=== PATIENT | female | born 1950 | race Caucasian/White ===

== ENCOUNTER → 2017-06-02 06:45 | Outpatient (REF) | payer MEDICARE, SELFPAY ==
[2017-06-02 08:55] LABS: Hematocrit 34.8 % (37-47); Hemoglobin 11.4 g/dl (12.0-15.0); Mean Corp Hgb Conc 32.8 g/gl (32-36); Mean Corpuscular Hgb 33.7 pg (27.0-32.0); Mean Platelet Vol. 9.5 fl (6.2-12.0); Platelet Count 228 K/mm3 (150-450); RBC Distribution Width CV 14.2 % (11.6-14.6); RBC Distribution Width SD 52.8 fl (35.1-43.9); Red Blood Count 3.38 M/mm3 (4.2-5.4); White Blood Count 5.4 K/mm3 (4.4-11.0)
[2017-06-02 08:56] LABS: Scan Indicated on CBC? Y/N NO
[2017-06-02 09:03] LABS: ALB/GLOB Ratio 0.8 RATIO (0.9-2.4); AST(SGOT) 19 U/L (15-37); Alanine Aminotransfer ALT/SGPT 24 U/L (13-56); Albumin, Serum 2.7 g/dL (3.2-5.0); Alkaline Phosphatase 76 U/L (45-117); Anion Gap 5 (5-15); BUN 16 mg/dL (7-18); BUN/Creat Ratio 35.9 RATIO (10-20); Calcium,Total 8.1 mg/dL (8.5-10.1); Chloride 103 mmol/L (98-107); Creatinine, Serum 0.45 mg/dL (0.55-1.02); EST Glomerular Filtration Rate 148 mL/min (>60); Est Glom Filt Rate - Afr Amer 180 mL/min (>60); Globulin 3.6 g/dL (2.2-4.2); Glucose 87 mg/dL (74-106); Magnesium 2.4 mg/dL (1.6-2.6); Potassium 4.2 mmol/L (3.5-5.1); Protein, Total 6.3 g/dL (6.4-8.2); Sodium Level 138 mmol/L (136-145)
[2017-06-04 09:57] LABS: Vitamin D,25 Hydroxy 29.9 ng/mL (29.95-100.01)
== END ==
LOC: OLS.ACW300 06:45
PROVIDERS: Visit Provider Family Medicine
DX: S82.201S Unspecified fracture of shaft of right tibia, sequela (principal); R29.6 Repeated falls; Z51.89 Encounter for other specified aftercare; M62.81 Muscle weakness (generalized); M15.0 Primary generalized (osteo)arthritis; F32.9 Major depressive disorder, single episode, unspecified
CPT/HCPCS: 36415; 80053; 82306; 83735; 84443; 85027

== ENCOUNTER → 2017-09-29 05:40 | Outpatient (REF) | payer MEDICARE, MEDICAID, SELFPAY ==
[2017-09-29 07:33] LABS: Hemoglobin 12.3 g/dl (12.0-15.0); Mean Corp Hgb Conc 32.4 g/gl (32-36); Mean Corpuscular Hgb 32.2 pg (27.0-32.0); Mean Corpuscular Volume 99.5 fL (81-99); Platelet Count 122 K/mm3 (150-450); RBC Distribution Width CV 14.6 % (11.6-14.6); RBC Distribution Width SD 52.7 fl (35.1-43.9); Red Blood Count 3.82 M/mm3 (4.2-5.4)
[2017-09-29 07:53] LABS: Scan Indicated on CBC? Y/N NO
[2017-09-29 07:55] LABS: Chloride 103 mmol/L (98-107); Creatinine, Serum 0.52 mg/dL (0.55-1.02); EST Glomerular Filtration Rate 125 mL/min (>60); Est Glom Filt Rate - Afr Amer 152 mL/min (>60); Potassium 4.2 mmol/L (3.5-5.1); Sodium Level 142 mmol/L (136-145)
[2017-09-29 07:56] LABS: BUN 10 mg/dL (7-18); BUN/Creat Ratio 19.2 RATIO (10-20); Glucose 110 mg/dL (74-106)
[2017-09-29 07:57] LABS: Anion Gap 8 (5-15); Calcium,Total 8.3 mg/dL (8.5-10.1)
== END ==
LOC: OLS.ACW300 05:40
PROVIDERS: Visit Provider Family Medicine
DX: S83.20 Tear of unspecified meniscus, current injury (principal); R29.6 Repeated falls; M62.81 Muscle weakness (generalized); M15.0 Primary generalized (osteo)arthritis; Z47.89 Encounter for other orthopedic aftercare
CPT/HCPCS: 36415; 80048; 85027

== ENCOUNTER → 2018-03-06 05:00 | Outpatient (REF) | payer MEDICARE, SELFPAY ==
[2018-03-06 09:15] LABS: Absolute Lymphocyte Count 1.21 X10^3/ul (0.83-4.51); Absolute Neutrophil Count 2.5 X10^3/uL (2.0-7.7); Basophil# 0.01 X10^3/uL; Basophil% 0.2 % (0-1); Eosinophil# 0.13 X10^3/uL; Eosinophils% 3.1 % (0-5); Hemoglobin 12.3 g/dl (12.0-15.0); Lymphocyte # 1.21 X10^3/ul (4.0); Lymphocyte % 28.9 % (19-41); Mean Corp Hgb Conc 31.5 g/gl (32-36); Mean Corpuscular Hgb 32.9 pg (27.0-32.0); Mean Corpuscular Volume 104.3 fL (81-99); Mean Platelet Vol. 10.5 fl (6.2-12.0); Monocyte# 0.31 X10^3/uL; Monocyte% 7.4 % (0-10); Neutrophil % 59.9 % (47-70); Platelet Count 146 K/mm3 (150-450); RBC Distribution Width CV 14.7 % (11.6-14.6); RBC Distribution Width SD 55.5 fl (35.1-43.9); Red Blood Count 3.74 M/mm3 (4.2-5.4); White Blood Count 4.2 K/mm3 (4.4-11.0)
[2018-03-06 09:29] LABS: POSITIVE COUNT NO; POSITIVE DIFFERENTIAL NO; POSITIVE MORPHOLOGY NO
[2018-03-06 09:30] LABS: ALB/GLOB Ratio 0.9 RATIO (0.9-2.4); AST(SGOT) 12 U/L (15-37); Alanine Aminotransfer ALT/SGPT 16 U/L (13-56); Alkaline Phosphatase 62 U/L (45-117); Amylase 49 U/L (25-115); Anion Gap 5 (5-15); BUN 18 mg/dL (7-18); BUN/Creat Ratio 35.2 RATIO (10-20); Chloride 104 mmol/L (98-107); Creatinine, Serum 0.51 mg/dL (0.55-1.02); EST Glomerular Filtration Rate 126 mL/min (>60); Est Glom Filt Rate - Afr Amer 153 mL/min (>60); Globulin 3.5 g/dL (2.2-4.2); Glucose 91 mg/dL (74-106); Potassium 4.6 mmol/L (3.5-5.1); Protein, Total 6.5 g/dL (6.4-8.2); Sodium Level 140 mmol/L (136-145)
--- OUTSIDE RECORDS SUMMARY | 2018-06-07 07:18 | XMS RPT_ITS ---
:1950 Author Organization [employer] Address [address] [place] [address] Phone Care Team Providers Name Role Phone Todd VALLADARES, Sam Varela Reason for Visit Reason For Visit Description Start Date Postop - 1st visit Preliminary reason for visit data, not yet signed by the author as of right leg post Open Reduction Internal Fixation Right Tib-fib on 05/21/2017 Preliminary reason for visit data, not yet signed by the author as of Chief Complaint Chief Complaint Description Start Date right leg post Open Reduction Internal Fixation Right Tib-fib on 05/21/2017 Preliminary chief complaint data, not yet signed by the author as of Instructions Instruction Description Start Date Patient advised to follow-up with Primary Care Physician for BMI management. Plan of Care Type Date Detail Appointment 01:15 PM Sam Brooks MD, [address] [facility] [place], [place], [address], Pending order XR TIBIA/FIBULA 2 VWS-RT Patient education \cps-sql1\CPS_PtEducation\CD C_[email or web address].pdf Medications Medication Instructions Start Stop Generic Name NDC Provider Date Date KETOCONAZOLE 2 % apply to / KETOCONAZOLE [id number] Mabel Randee CREA affected areas 22 INDUSTRIAL TRAINING SPECIALIST twice daily AMMONIUM LACTATE apply topically / AMMONIUM LACTATE [id number] Mabel Randee 12 % CREA to affected 22 INDUSTRIAL TRAINING SPECIALIST area every shift LEVOTHYROXINE 1 tablet daily / LEVOTHYROXINE 44332907947 Mabel Randee SODIUM 25 MCG 22 SODIUM INDUSTRIAL TRAINING SPECIALIST TABS OXYCODONE-ACETAM 1 tablet every / OXYCODONE-ACETAMI 46229079431 Mabel Jeff INOPHEN 5-325 MG 4 hours as 22 NOPHEN INDUSTRIAL TRAINING SPECIALIST TABS needed GUAIFENESIN-CODE 30 cc daily as / GUAIFENESIN-CODEI [id number] Mabel Randee INE 100-10 needed 22 NE INDUSTRIAL TRAINING SPECIALIST MG/5ML SYRP ACETAMINOPHEN 2 tablets three / ACETAMINOPHEN 84450365964 Mabel Randee 325 MG TABS times daily as 22 INDUSTRIAL TRAINING SPECIALIST needed MIRALAX POWD 17 gm daily / POLYETHYLENE 33130067995 Mabel Randee 22 GLYCOL 3350 INDUSTRIAL TRAINING SPECIALIST RANITIDINE HCL 1 tablet daily / RANITIDINE HCL 57936963252 Mabel Randee 150 MG TABS 22 INDUSTRIAL TRAINING SPECIALIST DILANTIN 100 MG 1 capsule twice / PHENYTOIN SODIUM 99853527124 Mabel Randee CAPS daily 22 EXTENDED INDUSTRIAL TRAINING SPECIALIST METOPROLOL 1 tablet daily / METOPROLOL 36369805376 Mabel Randee SUCCINATE ER 25 22 SUCCINATE INDUSTRIAL TRAINING SPECIALIST MG [id number] LOSARTAN 1 tablet daily / LOSARTAN 35156423655 Mabel Randee POTASSIUM 50 MG 22 POTASSIUM INDUSTRIAL TRAINING SPECIALIST TABS VITAMIN D3 1000 2 tablets daily / CHOLECALCIFEROL 52337206476 Mabel Randee UNIT TABS 22 INDUSTRIAL TRAINING SPECIALIST Conditions or Problems Problem Name Problem Onset Status Entry Provider Comment Standard Annotate Code Date Date Description Unspecified [id number] Active Sam Paige Closed SP IMN at fracture of (SNOMED CT) / Todd VALLADARES fracture of OSH shaft of tibia and right fibula, fibula, initial shaft encounter for closed fracture Unspecified [id number] Active Sam Paige Closed SP IMN at fracture of (SNOMED CT) / Todd VALLADARES fracture of OSH shaft of tibia and right tibia, fibula, initial shaft encounter for closed fracture Allergies, Adverse Reactions, Alerts Allergy Name Reaction Start Date Severity Status Provider Description TRAMADOL HCL Critical Active Mabel Randee INDUSTRIAL TRAINING SPECIALIST TETRACYCLINE Critical Active Mabel Randee INDUSTRIAL TRAINING SPECIALIST PENICILLIN Critical Active Mabel Randee INDUSTRIAL TRAINING SPECIALIST OXYBUTYNIN Critical Active Mabel Randee INDUSTRIAL TRAINING SPECIALIST NAPROSYN Critical Active Mabel Randee INDUSTRIAL TRAINING SPECIALIST MEPERIDINE HCL Critical Active Mabel Randee INDUSTRIAL TRAINING SPECIALIST FENTANYL (FENTANYL) Critical Active Mabel Randee INDUSTRIAL TRAINING SPECIALIST CODEINE PHOSPHATE Critical Active Mabel Randee INDUSTRIAL TRAINING SPECIALIST ASPIRIN Critical Active Mabel Randee INDUSTRIAL TRAINING SPECIALIST ACETAZOLAMIDE Critical Active Mabel Randee INDUSTRIAL TRAINING SPECIALIST SULFANLIAMIDE Critical Active Mabel Randee INDUSTRIAL TRAINING SPECIALIST NSAIDS Critical Active Mabel Randee INDUSTRIAL TRAINING SPECIALIST MACRODENTIN Critical Active Mabel Randee INDUSTRIAL TRAINING SPECIALIST MACROBID Critical Active Mabel Randee INDUSTRIAL TRAINING SPECIALIST HYDROCODONE-ACETAMI Critical Active Mabel Randee NOPHEN INDUSTRIAL TRAINING SPECIALIST DEMEROL Critical Active Mabel Randee INDUSTRIAL TRAINING SPECIALIST CIPRO Critical Active Mabel Randee (CIPROFLOXACIN HCL) INDUSTRIAL TRAINING SPECIALIST Social History Concept Description Observation Name Observation Value Units Start Date Alcohol use ETOH USE No Preliminary social history data, not yet signed by the author as of Details of drug DRUG USE No misuse behavior Preliminary social history data, not yet signed by the author as of Never smoker SMOK STATUS never smoker Preliminary social history data, not yet signed by the author as of Vital Signs Date Name Value Unit Description BMI (Body Mass 45.61 kg/m2 Body Mass Index Index) [Ratio] Preliminary vital sign data, not yet signed by the author as of BP Diastolic 89 mm[Hg] blood pressure, diastolic Preliminary vital sign data, not yet signed by the author as of BP Systolic 126 mm[Hg] blood pressure, systolic Preliminary vital sign data, not yet signed by the author as of Heart Rate 80 /min pulse rate E&M Preliminary vital sign data, not yet signed by the author as of Height 59 [in_us] height E&M Preliminary vital sign data, not yet signed by the author as of Height 150 cm height in centimeters E&M Preliminary vital sign data, not yet signed by the author as of Weight Measured 225 [lb_av] weight E&M Preliminary vital sign data, not yet signed by the author as of Weight Measured 102 kg weight in kilograms E&M Preliminary vital sign data, not yet signed by the author as of Results Date Name Value Unit Range Flag Description Office Visit: Postop - 1st visit, Rm: 6 MEDS REVIEW Done Documentation of current medications (procedure) Preliminary observation data, not yet signed by the author as of SMOK STATUS never smoker Tobacco smoking status FLIS Preliminary observation data, not yet signed by the author as of Preliminary observation data, not yet signed by the author as of Clinical Summary: [facility] account number Procedures Code Procedure Name Date Entry Date CPT-33894 XR TIBIA/FIBULA 2 VWS-RT G8730 Pain assessment documented as positive - follow-up documented G8427 Current medications documented 1036F Tobacco screening was negative - non user G8417 BMI documented as above normal parameters - follow-up documented G8783 Blood pressure within normal parameters - no follow-up required 5015F Fracture management ongoing care communicated 1100F Fallen more than twice or injured themselves from a fall documented 3288F Falls risk assessment documented 0518F Falls plan of care documented [id number] Patient Encounter Medications Administered No information available. Immunizations No information available. Advance Directives There may be information available, but it has not been provided by the sender. Assessments There may be information available, but it has not been provided by the sender. Review of Systems There may be information available, but it has not been provided by the sender. Family History There may be information available, but it has not been provided by the sender. History of Past Illness There may be information available, but it has not been provided by the sender. History of Present Illness There may be information available, but it has not been provided by the sender.
--- OUTSIDE RECORDS SUMMARY | 2018-06-07 07:18 | XMS RPT_ITS ---
:1950 Author Organization [email or web address] Address [address] [place] [address] Phone Care Team Providers Name Role Phone Todd VALLDAARES, Sam Varela Reason for Visit Reason For Visit Description Start Date Postop - subsequent visit Preliminary reason for visit data, not [...] Plan of Care Type Date Detail Appointment 02:00 PM Sam Brooks MD, [address] [place] [address], [id number], Patient education \[email or web address]\CPS_PtEducation\CD C_[email or web address].pdf Medications Medication Instructions Start Stop Generic Name NDC Provider Date Date KETOCONAZOLE 2 % apply to / KETOCONAZOLE [id number] Mabel Randee CREA affected areas 22 NUTRITION ASSOCIATE twice daily AMMONIUM LACTATE apply topically / AMMONIUM LACTATE 50037936261 Mabel Randee 12 % CREA to affected 22 NUTRITION ASSOCIATE area every shift LEVOTHYROXINE 1 tablet daily / LEVOTHYROXINE 56534426715 Mabel Randee SODIUM 25 MCG 22 SODIUM NUTRITION ASSOCIATE TABS OXYCODONE-ACETAM 1 tablet every / OXYCODONE-ACETAMI 86199275938 Mabel Jeff INOPHEN 5-325 MG 4 hours as 22 NOPHEN NUTRITION ASSOCIATE TABS needed GUAIFENESIN-CODE 30 cc daily as / GUAIFENESIN-CODEI 34647851069 Mabel Randee INE 100-10 needed 22 NE NUTRITION ASSOCIATE MG/5ML SYRP ACETAMINOPHEN 2 tablets three / ACETAMINOPHEN 07589501292 Mabel Randee 325 MG TABS times daily as 22 NUTRITION ASSOCIATE needed MIRALAX POWD 17 gm daily / POLYETHYLENE 56655189403 Mabel Randee 22 GLYCOL 3350 NUTRITION ASSOCIATE RANITIDINE HCL 1 tablet daily / RANITIDINE HCL 49316729454 Mabel Randee 150 MG TABS 22 NUTRITION ASSOCIATE DILANTIN 100 MG 1 capsule twice / PHENYTOIN SODIUM 96771673065 Mabel Randee CAPS daily 22 EXTENDED NUTRITION ASSOCIATE METOPROLOL 1 tablet daily / METOPROLOL 31794526220 Mabel Randee SUCCINATE ER 25 22 SUCCINATE NUTRITION ASSOCIATE MG [id number] LOSARTAN 1 tablet daily / LOSARTAN 52245443492 Mabel Randee POTASSIUM 50 MG 22 POTASSIUM NUTRITION ASSOCIATE TABS VITAMIN D3 1000 2 tablets daily / CHOLECALCIFEROL 25897005769 Mabel Randee UNIT TABS 22 NUTRITION ASSOCIATE Conditions or Problems Problem Name Problem Onset Status Entry Provider Comment Standard Annotate Code Date Date Description Unspecified Active Sam Paige Closed SP IMN at fracture of (SNOMED CT) / Todd VALLADARES fracture of OSH shaft of tibia and right fibula, fibula, subsequent shaft encounter for closed fracture with routine healing Unspecified Active Sam Paige Closed SP IMN at fracture of (SNOMED CT) / Todd VALLADARES fracture of OSH shaft of tibia and right tibia, fibula, subsequent shaft encounter for closed fracture with routine healing Unspecified [id number] Active Sam Paige Closed SP IMN at fracture of (SNOMED CT) / Todd VALLADARES fracture of OSH shaft of tibia and right fibula, fibula, initial shaft encounter for closed fracture Allergies, Adverse Reactions, Alerts Allergy Name Reaction Start Date Severity Status Provider Description TRAMADOL HCL Critical Active Mabel Randee NUTRITION ASSOCIATE TETRACYCLINE Critical Active Mabel Randee NUTRITION ASSOCIATE PENICILLIN Critical Active Mabel Randee NUTRITION ASSOCIATE OXYBUTYNIN Critical Active Mabel Randee NUTRITION ASSOCIATE NAPROSYN Critical Active Mabel Randee NUTRITION ASSOCIATE MEPERIDINE HCL Critical Active Mabel Randee NUTRITION ASSOCIATE FENTANYL (FENTANYL) Critical Active Mabel Randee NUTRITION ASSOCIATE CODEINE PHOSPHATE Critical Active Mabel Randee NUTRITION ASSOCIATE ASPIRIN Critical Active Mabel Randee NUTRITION ASSOCIATE ACETAZOLAMIDE Critical Active Mabel Randee NUTRITION ASSOCIATE SULFANLIAMIDE Critical Active Mabel Randee NUTRITION ASSOCIATE NSAIDS Critical Active Mabel Randee NUTRITION ASSOCIATE MACRODENTIN Critical Active Mabel Randee NUTRITION ASSOCIATE MACROBID Critical Active Mabel Randee NUTRITION ASSOCIATE HYDROCODONE-ACETAMI Critical Active Mabel Randee NOPHEN NUTRITION ASSOCIATE DEMEROL Critical Active Mabel Randee NUTRITION ASSOCIATE CIPRO Critical Active Mabel Randee (CIPROFLOXACIN HCL) NUTRITION ASSOCIATE Social History No information available. Vital Signs Date Name Value Unit Description BMI (Body Mass 45.61 kg/m2 Body Mass Index Index) [Ratio] Preliminary vital sign data, not yet signed by the author as of BP Diastolic 70 mm[Hg] blood pressure, diastolic Preliminary vital sign data, not yet signed by the author as of BP Systolic 112 mm[Hg] blood pressure, systolic Preliminary vital sign data, not yet signed by the author as of Heart Rate 87 /min pulse rate E&M Preliminary vital sign [...] Range Flag Description Office Visit: Postop - subsequent visit, Rm: MEDS REVIEW Done Documentation of current medications (procedure) Preliminary observation data, not yet signed by the author as of Preliminary observation data, not yet signed by the author as of Clinical Summary: [facility] account number Procedures Code Procedure Name Date Entry Date G8731 Pain assessment documented as negative - follow-up not required G8427 Current medications documented 1036F Tobacco screening was negative - non user G8417 BMI documented as above normal parameters - follow-up documented G8783 Blood pressure within normal parameters - no follow-up required 5015F Fracture management ongoing care communicated 1100F Fallen more than twice or injured themselves from a fall documented 3288F Falls risk assessment documented 0518F Falls plan of care documented [id number] Patient Encounter Medications Administered No information available. [...]
--- OUTSIDE RECORDS SUMMARY | 2018-06-07 07:19 | XMS RPT_ITS ---
:1950 Author Organization OHIP Care Team Providers Name Role Phone Mariusz Taylor Attending Unavailable Mariusz Taylor Attending Unavailable Mariusz Taylor Attending Unavailable Mariusz Taylor Attending Unavailable Mariuzs Taylor Attending Unavailable Mariusz Taylor Attending Unavailable Mariusz Taylor Attending Unavailable HEMAL BLOCK Admitting Unavailable HEMAL BLOCK Attending Unavailable Mariusz Taylor Attending Unavailable Mariusz Taylor Referring Unavailable Mariusz Taylor Primary Care Unavailable Nil[place] Attending Unavailable Mariusz Taylor Referring Unavailable Mariusz Taylor Primary Care Unavailable PROBLEMS PROBLEMS DATE TYPE CONDITION / CODE ATTENDING STATUS SOURCE 04/02/2018 Active Generalized HEMAL BLOCK Active [place] abdominal pain / Clinic Other R10.84(ICD-10) [place] Repository 04/10/2018 Unknown S82.201S - Mariusz Taylor Active [place] Unspecified [facility] fracture of shaft Hospital of right tibia, Repository sequela / S82.201S(ICD-10) 04/10/2018 Unknown Z47.89 - Encounter Mariusz Taylor Active [place] for other [facility] orthopedic Hospital aftercare / Repository Z47.89(ICD-10) 04/10/2018 Unknown I10 - Essential Mariusz Taylor Active [place] (primary) Community hypertension / Hospital I10(ICD-10) Repository 04/10/2018 Unknown E78.5 - Mariusz Taylor Active [place] Hyperlipidemia, Community unspecified / Hospital E78.5(ICD-10) Repository 04/10/2018 Unknown K21.9 - Mariusz Taylor Active [place] Gastro-esophageal [facility] reflux disease Hospital without esophagitis Repository / K21.9(ICD-10) 03/16/2018 Admitting Acute cystitis [place], Active [facility] Diagnosis without hematuria / [facility] N30.00(ICD-10) Repository 03/16/2018 Admitting Calculus of [place], Active [facility] Diagnosis gallbladder w/o [facility] cholecystitis w/o Repository obstruction / K80.20(ICD-10) 03/16/2018 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[place], Active [facility] Diagnosis w/o perforation or [facility] abscess w/o Repository bleeding / K57.30(ICD-10) 03/16/2018 Admitting Diaphragmatic [place], Active [facility] Diagnosis hernia without [facility] obstruction or Repository gangrene / K44.9(ICD-10) 03/16/2018 Admitting Gastro-esophageal [place], Active [facility] Diagnosis reflux disease [facility] without esophagitis Repository / K21.9(ICD-10) 03/16/2018 Admitting Unspecified [place], Active [facility] Diagnosis dementia without [facility] behavioral Repository disturbance / F03.90(ICD-10) 03/16/2018 Admitting Anxiety disorder, [place], Active [facility] Diagnosis unspecified / [facility] F41.9(ICD-10) Repository 03/16/2018 Admitting Anemia, unspecified [place], Active [facility] Diagnosis / D64.9(ICD-10) [facility] Repository 03/16/2018 Admitting Hyperlipidemia, [place], Active [facility] Diagnosis unspecified / [facility] E78.5(ICD-10) Repository 03/16/2018 Admitting Essential (primary) [place], Active [facility] Diagnosis hypertension / [facility] I10(ICD-10) Repository 03/16/2018 Admitting Hypothyroidism, [place], Active [facility] Diagnosis unspecified / [facility] E03.9(ICD-10) Repository 03/16/2018 Admitting Major depressive [place], Active [facility] Diagnosis disorder, single [facility] episode, Repository unspecified / F32.9(ICD-10) 03/16/2018 Admitting Allergy status to [place], Active [facility] Diagnosis other antibiotic [facility] agents status / Repository Z88.1(ICD-10) 03/16/2018 Admitting Allergy status to [place], Active [facility] Diagnosis narcotic agent [facility] status / Repository Z88.5(ICD-10) 03/16/2018 Admitting Allergy status to [place], Active [facility] Diagnosis analgesic agent [facility] status / Repository Z88.6(ICD-10) 03/16/2018 Admitting Allergy status to [place], Active [facility] Diagnosis sulfonamides status [facility] / Z88.2(ICD-10) Repository 03/16/2018 Admitting Allergy status to [place], Active [facility] Diagnosis penicillin / [facility] Z88.0(ICD-10) Repository 03/16/2018 Admitting Allergy status to [place], Active [facility] Diagnosis oth drug/meds/biol [facility] subst status / Repository Z88.8(ICD-10) 03/16/2018 Admitting Unspecified [place], Active [facility] Diagnosis abdominal pain / [facility] R10.9(ICD-10) Repository 09/10/2017 Unknown Z51.89 - Encounter Mariusz Taylor Active [place] for other specified Community aftercare / Hospital Z51.89(ICD-10) Repository 09/10/2017 Unknown M62.81 - Muscle Mariusz Taylor Active [place] weakness Community (generalized) / Hospital M62.81(ICD-10) Repository 09/10/2017 Unknown M15.0 - Primary Mariusz Taylor Active [place] generalized Community (osteo)arthritis / Hospital M15.0(ICD-10) Repository 09/10/2017 Unknown F32.9 - Major Mariusz Taylor Active [place] depressive Community disorder, single Hospital episode, Repository unspecified / F32.9(ICD-10) PROCEDURES PROCEDURES No Procedure Records FoundRESULTS RESULTS PHENYTOIN (DILANTIN) Collected: 04/08/2018 Status: F Source: [place] LEVEL 6:[address] [facility] REPOSITORY Order Comment: DO NOT KNOW THE TIME MED. IS TO BE GIVEN, NURSE WAS NOT AVAILABLE WHEN I CALLED Time Medication is to be Given? 0000 TYPE CODE TESTS RESULT OUT OF RANGE REFERENCE UNITS LAB L501.7700 10.0-20.0 mL Normal PHENYTOIN 12.6 Performed By: #### L501.7700 #### [facility] [address] [place], [address] Observed: 04/04/2018 Status: F Source: [place] CULTURE, URINE 2:[address] [facility] REPOSITORY STRAIGHT CATH Urine Culture ORGANISM 1: Proteus mirabilis [place] Count >100,000 Proteus mirabilis: REACTION Ampicillin $ <=2 S Ampicillin/Sulbactam $ <=2 S Cefazolin $ <=4 S Cefepime $ <=0.12 S Ceftazidime *NF <=1 S Ceftriaxone $ <=0.25 S Ciprofloxacin $ 2 I Ertapenim $$$ <=0.12 S Gentamicin $ <=1 S Imipenem *NF 1 S Levofloxacin $ 2 S Nitrofurantoin $ 128 R Piperacillin/Tazobactam $$ <=4 S Tobramycin $ <=1 S Trimethoprim/Sulfametho $ <=20 S (NF) indicates non-formulary drug at [facility]. Approval by Infectious Disease Specialist required before non-formulary drugs may be ordered and/or dispensed. Performed By: #### M100.0650 #### [facility] [address] [place], [place], [address] ANES POST Observed: 04/02/2018 Status: COMPLETED Source: [place] 1:20 PM CLINIC OTHER CAMPUS REPOSITORY HNO ID: [id number] Author: Quang Waters Service: Anesthesiology Author Type: Anesthesiologist Type: Anesthesia PostOp Filed: 04/02/2018 1:20 PM Note Text: POST ANESTHESIA EVALUATION NOTE SERVICE DATE: 04/02/2018 SERVICE TIME: 1:20 PM : 1950 Vitals: 04/02/18 1006 04/02/18 1057 04/02/18 1130 04/02/18 1135 Temp: 36.7 ?C (98.1 ?F) 36.2 ?C (97.2 ?F) 36.4 ?C (97.5 ?F) 36.5 ?C (97.7 ?F) 04/02/18 1100 04/02/18 1115 04/02/18 1130 04/02/18 1135 BP: 136/79 159/67 158/66 155/65 04/02/18 1100 04/02/18 1115 04/02/18 1130 04/02/18 1135 Pulse: 77 76 70 72 04/02/18 1100 04/02/18 1115 04/02/18 1130 04/02/18 1135 Resp: 17 18 19 16 04/02/18 1100 04/02/18 1115 04/02/18 1130 04/02/18 1135 SpO2: 94% 98% 94% 95% Validated Vital Signs: Yes POST ANES STATUS: No apparent anesthetic complications. The patient is appropriately hydrated with stable respiratory and cardiovascular status. Patient has safe and adequate airway control. The patient has appropriate pain relief and no significant post operative nausea or vomiting. The patient has achieved baseline mental status. Further assessment by Anesthesia Service: None Other Remarks: SIGNATURE: Quang Waters MD PATIENT NAME: Kaia Gordon DATE: April 02, 2018 TIME: 1:20 PM PAGER/CONTACT #: [phone] NURSING PROG Observed: 04/02/2018 Status: COMPLETED Source: [place] 12:40 PM [facility] REPOSITORY HNO ID: [id number] Author: Ruth SaucedoRn) VU Valentin Service: (none) Author Type: Registered Nurse Type: Nursing Progress Note Filed: 04/02/2018 12:41 PM Note Text: Ambulance service came to transport pt back to [facility] PT ED Observed: 04/02/2018 Status: COMPLETED Source: [place] 12:01 PM [facility] REPOSITORY HNO ID: [id number] Author: Melisa SaucedoRn) VU Loredo Service: Nursing Author Type: Registered Nurse Type: Patient Education Filed: 04/02/2018 12:01 PM Note Text: POST OP LEARNING RESPONSE INSTRUCTION PROVIDED TO: Patient METHOD OF INSTRUCTION: Individual instruction PATIENT / FAMILY RESPONSE: Verbalizes understanding of: POST-OPERATIVE INSTRUCTIONS-Correct actions to take to reduce postoperative complications FOLLOW-UP PLAN: Complete - No need for follow-up SUPPLEMENTAL MATERIAL: None REFERRAL (RECOMMENDATION): None Electronically Signed By: Melisa Loredo RN In Department: [facility] ENDOSCOPY SURGICAL PATHOLOGY Observed: 04/02/2018 Status: F Source: [place] 11:15 AM [facility] OTHER [place] REPOSITORY Specimen originated from [facility] Specimen #: [id number] Submitting Physician: Hemal Block M.D. FINAL DIAGNOSIS 1. Esophagogastric junction, irregularity, biopsy (A) - Minimally inflamed cardiac and oxyntic-type gastric mucosa, negative for intestinal metaplasia. - Squamous mucosa with reactive epithelial changes and focal active inflammation. 2. Stomach, biopsy (B) - Antral and oxyntic-type gastric mucosa with no diagnostic abnormalities. 3. Duodenum, biopsy (C) - Duodenal mucosa with no diagnostic abnormalities. //04-03-2018 Paresh Silverio M.D., Ph.D. (Electronic Signature) SPECIMEN SUBMITTED A: IRREGULAR ESOPHAGOGASTRIC JUNCTION, BIOPSY, R/O BALDERAS'S B: GASTRIC, BIOPSY, R/O H. PYLORI C: DUODENUM, BIOPSY, R/O GIARDIA, CELIAC CLINICAL DATA ABDOMINAL PAIN, R/O BALDERAS'S, R/O H. PYLORI, R/O GIARDIA, CELIAC LMP: MENOPAUSE GROSS DESCRIPTION A. Received in formalin are three pieces of nieves, soft tissue aggregating to 0.9 x 0.3 x 0.2 cm. Totally submitted in one cassette. B. Received in formalin are three pieces of nieves, soft tissue aggregating to 0.9 x 0.2 x 0.2 cm. Totally submitted in one cassette. C. Received in formalin is one piece of nieves, soft tissue measuring 0.3 x 0.3 x 0.3 cm. Totally submitted in one cassette. Gross examination performed at [facility], [address] [place] [address] RVW 04/02/2018 5:22:58 PM Date of Report: 04/04/2018 Date of Procedure: 04/02/2018 Date of Receipt: 04/02/2018 Submitted by: Hemal Block M.D. Location: [facility] Diagnostic interpretation performed at [facility], [address] [place] [address]. Performed By: #### PATHS #### [facility] [employer] [address] [place] [address] [place] [address] [phone] BRIEF OP NOT Observed: 04/02/2018 Status: COMPLETED Source: [place] 10:33 AM [facility] REPOSITORY HNO ID: [id number] Author: Hemal Block Service: (none) Author Type: Physician Type: Brief Op Note Filed: 04/02/2018 10:52 AM Note Text: BRIEF OPERATIVE / PROCEDURE NOTE LOG ID: [id number] SURGERY/PROCEDURE DATE: 04/02/2018 INCISION/PROCEDURE START TIME: INCISION CLOSE/PROCEDURE END TIME: SURGEON(S)/PROCEDURALIST(S) AND APPLICATIONS ENGINEER MANUFACTURING(S): Surgeon(s) and Role: * Hemal Block - Primary No Additional Staff SURGERY/PROCEDURE(S): egd w bx ANESTHESIA: Monitored Anesthesia Care FINDINGS: 5cm hh ESTIMATED BLOOD LOSS: 2 mls SPECIMENS: duo/gas/ge jnx COMPLICATIONS: None PRE-OP/PRE-PROCEDURE DIAGNOSIS: abd pain/nausea POST-OP/POST-PROCEDURE DIAGNOSIS: As above SIGNATURE: Hemal Block MD PATIENT NAME: Kaia Gordon DATE: April 02, 2018 TIME: 10:33 AM PAGER/CONTACT #: [phone] ANES PREOP Observed: 04/02/2018 Status: COMPLETED Source: [place] 10:12 AM [facility] REPOSITORY HNO ID: [id number] Author: Quang Waters Service: Anesthesiology Author Type: Anesthesiologist Type: Anesthesia PreOp Filed: 04/02/2018 10:13 AM Note Text: ANESTHESIOLOGY DAY OF SURGERY NOTE SERVICE DATE: 04/02/2018 SERVICE TIME: 10:12 AM : 1950 Procedure(s) (LRB): EGD (N/A) Surgeon(s): Hemal Block Estimated body mass index is 43.42 kg/m? as calculated from the following: Height as of this encounter: 149.9 cm (4' 11). Weight as of this encounter: 97.5 kg (215 lb). Most recent hematocrit and potassium results: No results found for this basename: HCT,HEMATOCRIT,K,POTASSIUM ANES DOS/PREOP NOTE: Vitals: 04/02/18 1006 BP: 122/75 Pulse: 77 Resp: 16 Temp: 36.7 ?C (98.1 ?F) SpO2: 96% Weight: 97.5 kg (215 lb) Height: 149.9 cm (4' 11) There is no problem list on file for this patient. PAST MEDICAL HISTORY Diagnosis Date - Cholelithiasis No past surgical history on file. No family history on file. Social History: Social History Substance Use Topics - Smoking status: Not on file - Smokeless tobacco: Not on file - Alcohol use Not on file No current facility-administered medications on file prior to encounter. No current outpatient prescriptions on file prior to encounter. Current Facility-Administered Medications: lactated ringers infusion 50 mL/hr INTRAVENOUS CONTINUOUS Quang Waters Allergies: ALLERGIES Allergen Reactions - Acetazolamide Unknown - Aspirin Unknown - Ciprofloxacin Unknown - Codeine Phosphate Unknown - Demerol [Meperidine* Unknown - Fentanyl Unknown - Hydrocodone Unknown - Macrodantin [Nitrof* Unknown - Naproxen Unknown - Nsaids (Non-Steroid* Unknown - Oxybutynin Unknown - Penicillins Unknown - Sulfacetamide Unknown - Tetracyclines Unknown - Tramadol Unknown DOS EXAM: Adequate NPO status: Yes Anesthetic risks, benefits, alternatives, personnel and consent discussed: Yes Patient agrees to proceed: Yes Previous Anesthesia: No history of adverse event. Airway Assessment: MP 2; Neck ROM: Full ROM without neurologic symptoms; Airway Evaluation: No significant abnormalities Symptoms of Sleep Apnea: None Dentition: Teeth intact Additional Physical Exam: Lungs: Patient health status unchanged since recent history and physical. See history and physical for exam findings. Cardiac: Patient health status unchanged since recent history and physical. See history and physical for exam findings. Additional Pertinent Findings: N/A Blood Products: Not anticipated for this procedure. Anesthetic Plan: MAC with Sedation Pain Management Plan: Parenteral or Oral ASA Class: 4 Other Medical Problems: None I have interviewed and examined the patient. I have reviewed the medical record and/or the pre-anesthesia evaluation, pertinent labs, and test results. Significant changes in the patient's condition since the History and Physical, not otherwise documented in primary service progress notes: No This contains updated information obtained within 48 hours of Surgery/Procedure. SIGNATURE: Quang Waters MD PATIENT NAME: Kaia Gordon DATE: April 02, 2018 TIME: 10:12 AM CSN: [id number] PT ED Observed: 04/02/2018 Status: COMPLETED Source: [place] 10:08 AM CLINIC OTHER CAMPUS REPOSITORY HNO ID: [id number] Author: Lisa (Rn) VU Paniagua Service: (none) Author Type: Registered Nurse Type: Patient Education Filed: 04/02/2018 10:08 AM Note Text: PRE OP LEARNING ASSESSMENT PROCEDURE/SURGERY: GI PROCEDURES: EGD READINESS TO LEARN COGNITIVE ABILITY: Alert and oriented MOTIVATION TO LEARN: Interested FAMILY SUPPORT: High - Very involved in pt care PATIENT LEARNS BEST BY: Verbal Instruction FACTORS AFFECTING LEARNING: None PHYSICAL LIMITATIONS AFFECTING LEARNING: None Electronically Signed By: Lisa Paniagua RN In Department: [facility] ENDOSCOPY NURSING PROG Observed: 04/01/2018 Status: COMPLETED Source: [place] 12:22 PM CLINIC OTHER CAMPUS REPOSITORY HNO ID: [id number] Author: Lara (Rn) VU Ward Service: Nursing Author Type: Registered Nurse Type: Nursing Progress Note Filed: 04/01/2018 12:35 PM Note Text: PACC Nurse Progress Note History AND Physical: PACC Visit Date: N/A Original HANDP Date: Needs H and P dos ED visit Date: N/A Outside HANDP Scanned Date: N/A Labs Within Last 6 Months: CBC: Date 03/06/18 cbc/diff -platelets 146,within acceptable limits BMP/CMP: Date 03/06/18 cmp- within acceptable limits Imaging Within Last 12 Months: N/A Cardiac Testing: N/A Last Menstrual Period: LMP Date: N/A Postmenopausal >1yr: Yes, S/P Hysterectomy: unknown BMI Percentile (PEDS): N/A Risk Assessment: N/A Anesthesia Review: N/A Narrative: Minimal information in [facility] . Most info rec'd from cindy Nevarez at [facility]. Hx seizures-- per staff--none since admitted to [facility] 05/2017 Per Geri at [facility]--she resides there because she can't take care of herself Pre-op Considerations: Pt is alert and oriented per staff Does not ambulate--uses WC, coming by ambulance tomorrow from [facility]. Per Staff, pt's sister Loan will be there--ML for Loan to call back and verify. Chart Check: COMPLETED Needs H and P dos Lara Ward RN April 01, 2018 12:22 PM PATIENT PREOPERATIVE INSTRUCTIONS Pre op instructions given to Geri, cindy at [facility] No ref. provider found has scheduled you for your procedure at this surgery center: [facility]: [phone] -- [address] [facility] [id number]. Please read below carefully for your personalized instructions. Blood Thinning Medications: - Stop NSAIDS (Ibuprofen, Advil, Aleve, Motrin, Celebrex, Mobic, etc.) 7 days before surgery, as directed by your surgeon. - Stop Vitamin E, ALL multi-vitamins, herbals and dietary supplements 7 days before surgery. Dietary Restrictions: - No solid food after midnight. - You may have 12 ounces of clear liquids (water, clear juices such as apple juice or gatorade, carbonated beverages, clear tea, black coffee, jello) until 2 hours before scheduled arrival at facility. Pain Medications: Medications: Approved medications to take the morning of surgery with a sip of water: Levothyroxine, metoprolol, dilantin, protonix If you start any new medications after today's visit, please contact the surgeon's office. Important Reminders: - Candy, mints, gum and tobacco products are NOT permitted the morning of surgery. - Hearing aids, dentures and glasses may be worn the morning of surgery. - NO jewelry, body piercings, makeup, hairpins or contacts are to be worn the day of surgery. OK to shower DOS do not use creams, lotions, powders perfume/cologne or after shave if extremity surgery remove all nail pashto pre op and do not shave site If you develop symptoms such as a fever, cold, or flu, or have other changes to your health within TWO DAYS of scheduled surgery or the morning of surgery, please contact the surgery center above. Personal Belongings: - Leave ALL valuables and money at home or with family members. For Outpatient Procedures: - YOU MUST HAVE A RESPONSIBLE HOSPICE VOLUNTEER TAKE YOU HOME. A VARNISH SUPERVISOR OR OFFICE ADMIN CANNOT BE MADE A RESPONSIBLE HOSPICE VOLUNTEER. +++ Pt coming by ambulance from [facility] - We recommend that a responsible person stays with you overnight to take care of you. - You cannot stay in a hotel alone after outpatient surgery. You will not be permitted to have your surgery, if you do not have someone to take care of you. Arrival Time for Surgery: - The Surgery Center or hospital where you are having surgery will call the afternoon before surgery (or Sunday for Sunday surgery) with a scheduled arrival time. - If you have not heard by 4 pm, please contact the surgery center above. Please be aware that emergency situations arise, which may delay or change your surgical time. If this happens, we will notify you as soon as possible and regret any inconvenience. Lara Ward RN 04/01/18 12:30 pm URINALYSIS, ROUTINE Collected: 03/28/2018 Status: F Source: [place] ([place]) 1:[address] [facility] REPOSITORY Order Comment: How was Urine Obtained? CLEAN CATCH TYPE CODE TESTS RESULT OUT OF RANGE REFERENCE UNITS LAB L400.3000 Yellow COLOR Normal Yellow LAB L400.3050 Clear Normal CLARITY Sl. Cloudy LAB L400.3200 Normal mg/dl Normal GLUCOSE, UR Normal LAB L400.3300 Negative mg/dL Normal BILIRUBIN URINE Negative LAB L400.3400 Negative mg/dl Normal KETONE UR Negative LAB L400.3465 1.002-1.030 Normal SP.GR. DIPSTX 1.010 LAB L400.3550 5.0 - 8.0 pH UR Normal 8.0 LAB L400.3600 Negative mg/dl PROT Normal DIPSTX Negative LAB L400.3700 Normal mg/dl Normal UROBILI Normal LAB L400.3750 Negative Normal NITRITE UR Negative LAB L400.3780 Negative /ul Normal OCCULT BLOOD-UR Negative LAB L400.3800 Negative /ul LEUK Normal ESTERASE Negative Performed By: #### L400.2010 #### [facility] [address] [place], [address] Observed: 03/28/2018 Status: F Source: [place] CULTURE, URINE 1:[address] [facility] REPOSITORY Urine Culture ORGANISM 1: Mixed Gram Positive Organisms [place] Count 50,000-80,000 MIX CULTURE Mixed contaminants. Submit a new specimen if indicated. Performed By: #### M100.0650 #### [facility] [address] [place], [address] HOSP Observed: 03/28/2018 Status: COMPLETED Source: [place] 12:00 AM CLINIC OTHER CAMPUS REPOSITORY Patient:Kaia Gordon MRN: <[id number]> Height:4' 11(1.499 m) Weight:215 lb (97.523 kg) Outpatient Medications as of 04/02/18: cholecalciferol (VITAMIN D-3) 2,000 unit tablet Levothyroxine 25 mcg cap losartan (COZAAR) 50 mg tablet metoprolol succinate ER (TOPROL XL) 25 mg 24 hr tablet phenytoin ER (DILANTIN) 100 mg ER capsule pantoprazole DR (PROTONIX) 40 mg tablet acetaminophen (TYLENOL) 325 mg cap Admission/Clinic Administered Medications as of 04/02/18: lactated ringers infusion NaCl 0.9% 2-10 mL Problem List: No problem list on file for this patient. Allergies: Acetazolamide Aspirin Ciprofloxacin Codeine Phosphate Demerol [Meperidine (Pf)] Fentanyl Hydrocodone Macrodantin [Nitrofurantoin] Naproxen Nsaids (Non-Steroidal Anti-Inflammatory Drug) Oxybutynin Penicillins Sulfacetamide Tetracyclines Tramadol Date Verified: 04/02/18 Lab Values No results within the last 30 days for the following basenames: K,HCT No progress notes entered within the past 30 days [facility] Observed: 03/21/2018 Status: COMPLETED Source: [place] 12:00 AM [facility] [place] REPOSITORY Letter Text Kaia Gordon [facility] Doretha Alicea MD [address] [place] [address] Kaia Gordon [address] [place] [address] March 21, 2018 Kaia Gordon Dear Ms. Gordon, It was noted that you did not keep your scheduled appointment on 03/20. If your medical problem has not resolved, please call our office to reschedule an appointment. Sincerely, Doretha Alicea MD CT ABDOMEN/PELVIS W/ Observed: 03/17/2018 Status: F Source: [place] 3:27 AM [facility] REPOSITORY Patient Name: KAIA GORDON CT Exam Date/Time 03/17/2018 02:53:[address] Abdomen/Pelvis w/ IV Contrast (IV Onl Ordering Physician NILSON POSEY Accession Number [id number] CPT4 Codes 42162 (CT Abdomen/Pelvis w/ IV Contrast (IV Onl), Q9967 (CT ISOVUE 370MG/[id number]) Reason For Exam abd pain, nausea, vomiting Report CT ABDOMEN AND PELVIS WITH CONTRAST CLINICAL INDICATION: Abdominal pain, nausea and vomiting. TECHNIQUE: Multi-axial 3mm sections through the abdomen and pelvis following 75 mL of Isoview contrast media. No oral contrast was administered. Coronal and sagittal reconstructions were reviewed. COMPARISON: None. FINDINGS: Moderate-sized hiatal hernia is noted. Lung bases: Right lower lobe bleb versus pneumatocele. Minimal bibasilar atelectasis. Liver: Normal size and contours. Tiny inferior hepatic dome subcapsular cavernous hemangioma. Biliary tree: Gallbladder is slightly distended with bile. No biliary dilatation. Spleen: Normal. Adrenals: Normal. Pancreas: Normal. Kidneys: Symmetric contrast enhancement without evidence of hydronephrosis. No focal renal lesion is identified. Bilateral parapelvic cysts. Free air or fluid: None. Mesenteric/retroperitoneal: No adenopathy or inflammation. Aorta: Normal caliber of aorta and bilateral common iliac arteries. Bowel: Sigmoid diverticulosis without evidence of acute diverticulitis. No dilatation is noted. Abdominal wall: No ventral hernia is evident. Pelvic organs/viscera: No mass identified. Uterus is anteverted and normal in size. Trace endocervical fluid is noted. Inguinal lymphadenopathy: None. Osseous structures: Lumbar degenerative spondylosis. Slight loss of height of the L1 vertebral body with vertebroplasty cement. IMPRESSION: 1. No acute abdominal or pelvic process. 2. Moderate-sized hiatal hernia. 3. Mild gallbladder distention may be secondary to fasting state. 4. Sigmoid diverticulosis. Bilateral parapelvic cysts. Report Dictated on Final Dictating Physician: HEMAL FERNANDO DO, I Signed Date and Time: 03/17/2018 3:32 am Signed by: HEMAL FERNANDO DO, I Transcribed Date and Time: 03/17/2018 3:33 URINALYSIS,MACRO Collected: 03/17/2018 Status: F Source: [facility] 2:06 AM SYSTEM REPOSITORY TYPE CODE TESTS RESULT OUT OF REFERENCE UNITS RANGE LAB APPUR Clear NA Appearance CLOUDY LAB COLUR Lt. Yellow NA Color DK YELLOW LAB USG 1.005-1.030 NA Specific Normal [place],Urine 1.026 LAB UPH 5.0-8.0 NA pH,Urine Normal 7.5 LAB ULUK Negative NA Leukocytes 2 + LAB UNIT Negative NA Nitrites POS LAB UPRO Negative mg/dL Total Protein,Urine 1 + LAB UGLU Negative mg/dL Glucose,Urine NEG LAB UKET Negative mg/dL Ketone,Urine NEG LAB UURO 0-1 mg/dL Urobilinogen 1.0 LAB UBIL Negative NA Bilirubin,Ur NEG LAB UBLD Negative {RBC}/uL Occult Blood,Ur NEG Performed By: #### UAMAC, UAMIC #### [facility] [address] [place] [address] URINALYSIS,MICROSCOPIC Collected: Status: F Source: [place] 03/17/2018 2:06 AM [facility] REPOSITORY TYPE CODE TESTS RESULT OUT OF REFERENCE UNITS RANGE LAB WBCU 0-5 /[HPF] WBC,Urine 25 LAB RBCU 0-2 /[HPF] RBC,Urine 2 LAB EPIU 3-5 /[HPF] Epithelial Cells TRACE LAB ADRIENNE Negative NA Bacteria 4 + LAB HYL 0-1 /[LPF] Cast, Hyaline 3 Performed By: #### UAMAC, UAMIC #### [facility] [address] [place] [address] US ABDOMEN LIMITED Observed: 03/17/2018 Status: F Source: [facility] 1:53 AM SYSTEM REPOSITORY Patient Name: KAIA GORDON Ultrasound Exam Date/Time 03/17/2018 01:17:25 EST Exam US Abdomen Limited Ordering Physician NILSON POSEY Accession Number [id number] CPT4 Codes 42223 () Reason For Exam h/o gallstones, abdominal pain Report US ABDOMEN LIMITED CLINICAL INDICATION: Right upper quadrant and epigastric pain. TECHNIQUE: Right upper quadrant ultrasound of abdomen COMPARISON: None FINDINGS: Liver: Limited evaluation of the liver secondary to poor ultrasound penetration. The visualized portions of the liver are unremarkable. Gallbladder: Gallbladder is distended with bile. There are multiple dependent gallbladder calculi. No gallbladder wall thickening or pericholecystic fluid is seen. Positive reported Gray sign is reported. Bile ducts: Intrahepatic and extrahepatic bile ducts are not dilated Common bile duct: 0.4 cm, within normal limits. \X09\\X09\ Pancreas: Suboptimal visualization of pancreas due to overlying bowel gas. Kidneys: Normal echogenicity without pelvicalyceal dilatation or mass Right kidney measures: 10.7 x 3.2 x 4.7 cm 1.7 x 2 x 1.1 cm superior and 1.2 x 1.6 x 1.4 cm mid renal cortical cyst. IMPRESSION: 1. Cholelithiasis. 2. Distended gallbladder with positive reported Gray's sign. There is lack of pericholecystic fluid or GB wall thickening. Consider fasting state or less likely acute cholecystitis. 3. No biliary dilatation. Report Dictated on Final Dictating Physician: HEMAL FERNANDO DO, I Signed Date and Time: 03/17/2018 1:58 am Signed by: HEMAL FERNANDO DO, I Transcribed Date and Time: 03/17/2018 1:59 COMP METABOLIC PANEL Collected: 03/17/2018 Status: F Source: [facility] 12:43 AM SYSTEM REPOSITORY TYPE CODE TESTS RESULT OUT OF RANGE REFERENCE UNITS LAB NA3 135-145 mmol/L Sodium Normal 139 LAB K3 3.5-5.1 mmol/L Normal Potassium 4.6 LAB CL3 98-107 mmol/L Chloride Normal 98 LAB CO23 22-30 mmol/L High Carbon Dioxide 32 LAB ANIN3 NA Anion Gap 10 LAB GLUC3 70-100 mg/dL High Glucose 205 LAB BUN3 7-20 mg/dL High Urea Nitrogen 21 LAB CRET3 0.52-1.25 mg/dL Low Creatinine 0.51 LAB GF3BR >60 mL/min eGFR > 60.0 LAB GF3WR >60 mL/min eGFR OTHER > 60.0 Result Comment: Source- MDRD equation with creatinine calibration to IDMS(NKDEP) eGFR not recommended for drug dose adjustment LAB CA3 8.4-10.4 mg/dL Calcium Normal 9.1 LAB ALB3 3.5-5.0 g/dL Albumin, Serum Normal 4.4 LAB TP3 6.3-8.2 g/dL Total Protein Normal 7.3 LAB BILT3 0.2-1.3 mg/dL Normal Bilirubin,Total 1.1 LAB ALKP3 38-126 U/L Alkaline Normal Phosphatase 82 LAB ALT3 13-69 U/L High ALT (SGPT) 81 LAB AST3 15-46 U/L High AST (SGOT) 159 Performed By: #### HEMDF, CMP3, LIPA4, TROPN #### [facility] [address] [place] [address] LIPASE Collected: 03/17/2018 Status: F Source: [facility] 12:43 AM SYSTEM REPOSITORY TYPE CODE TESTS RESULT OUT OF RANGE REFERENCE UNITS LAB LIPA4 23-300 U/L Normal Lipase 32 Performed By: #### HEMDF, CMP3, LIPA4, TROPN #### [facility] [address] [place] [address] TROPONIN I Collected: 03/17/2018 Status: F Source: [facility] 12:43 AM SYSTEM REPOSITORY TYPE CODE TESTS RESULT OUT OF RANGE REFERENCE UNITS LAB TROP4 0.000-0.034 ng/mL Normal Troponin I < 0.012 Result Comment: 0.046 - 0.400 = Indeterminate > 0.400 = Consider Myocardial Injury Performed By: #### HEMDF, CMP3, LIPA4, TROPN #### [facility] [address] [facility] [address] [place] [address] HEMOGRAM W/ AUTODIFF Collected: 03/17/2018 Status: F Source: [place] 12:42 AM SYSTEM REPOSITORY TYPE CODE TESTS RESULT OUT OF REFERENCE UNITS RANGE LAB IWBC 3.6-10.7 10*3/uL WBC High 12.7 LAB RBC 3.80-5.20 10*6/uL RBC Normal 4.24 LAB HGB 11.7-16.0 g/dL Hemoglobin Normal 14.4 LAB HCT 35.0-47.0 % Hematocrit Normal 42.3 LAB MCV 79.0-98.0 fL MCV High 99.7 LAB MCH 26.0-34.0 pg MCH Normal 33.9 LAB MCHC 32.0-36.0 % MCHC Normal 34.0 LAB RDW 11.5-14.5 % RDW Normal 14.2 LAB PLT 140-440 10*3/uL Platelet Normal 165 LAB MPV 7.4-10.4 fL MPV Normal 8.0 LAB GRAN% 40.0-80.0 % Granulocytes High 93.0 LAB LYMP% 20.0-40.0 % Low Lymphocytes 3.0 LAB MONO% 2.0-10.0 % Monocytes Normal 3.7 LAB EOS% 1.0-6.0 % Low Eosinophils 0.0 LAB BAS% 0.0-2.0 % Basophils Normal 0.3 LAB ANC 1.8-7.0 10*3/uL Abs High Neutrophile Cnt 11.8 LAB ALC 1.0-4.3 10*3/uL Low Abs Lymph Cnt 0.4 LAB AMC 0.0-0.8 10*3/uL Abs Monocyte Normal Cnt 0.5 LAB AEC 0.0-0.5 10*3/uL Abs Eosin Cnt Normal 0.0 LAB ABC 0.0-0.2 10*3/uL Abs Baso Cnt Normal 0.0 Performed By: #### HEMDF, CMP3, LIPA4, TROPN #### [facility] [address] [place] [address] ED PROVIDER NOTE Observed: 03/16/2018 Status: F Source: [facility] 11:31 PM SYSTEM REPOSITORY [facility] ED eMERGENCY dEPARTMENT eNCOUnter Pt Name: Kaia Gordon Birthdate 1950 Date of evaluation: 03/16/2018 Provider: Nilson Riojas MD CHIEF CONCERN Chief Complaint Patient presents with ? Abdominal Pain pt c/o abdominal pain, nausea and vomiting. states that she was diagnosed with GB issues recently. CHIEF CONCERN / HISTORY OF PRESENT ILLNESS Says that over the past month she has had intermittent abdominal pains. She was told by her nursing facility she likely had gallstones. She was referred to general surgery. She saw Dr. Block(sp?) on the and at that time, symptoms were relatively controlled. At that time, blood work and CT abd/pelvis was to be performed on 03/20. Since that time, patient says symptoms are becoming more frequent since then. She says that today around 4p before dinner she starting having reflux and right lower quadrant pain for which she took mylanta. This did not improve her symptoms. She has had constant right-sided abdominal pain since. Moderate in severity with persistent nausea. REVIEW OF SYSTEMS Constitutional: No fevers. No chills. No fatigue. HENT: No sore throat. No congestion. Eye: No double vision. No blurry vision. No eye pain. Respiratory: No cough. No dyspnea. No wheezing. Cardiovascular: No chest pain or pressure. No palpitations. No lightheadedness. No leg swelling. GI: No diarrhea. No constipation. No black or bloody stools. : No frequency. No dysuria. No urgency. MSK: No arthralgias. No myalgias. Skin: No rashes. Neuro: No numbness. No tingling. No weakness. No headache. Psych: No suicidal ideation. No homicidal ideation. PAST MEDICAL HISTORY Past Medical History: Diagnosis Date ? Anemia ? Anxiety disorder ? Convulsion (HCC) ? Dementia ? GERD (gastroesophageal reflux disease) ? Hyperlipidemia ? Hypertension ? Hypothyroidism ? Major depressive disorder ? Tibia fracture SURGICAL HISTORY No past surgical history on file. CURRENT MEDICATIONS There are no discharge medications for this patient. ALLERGIES Acetazolamide; Aspirin; Ciprofloxacin; Codeine phosphate [codeine]; Fentanyl; Hydrocodone; Macrobid [nitrofurantoin macrocrystal]; Meperidine; Naproxen; Nsaids; Oxybutynin chloride; Penicillins; Sulfa antibiotics; Tetracyclines & related; and Tramadol FAMILY HISTORY No family history on file. SOCIAL HISTORY Social History Social History ? Marital status: Spouse name: N/A ? Number of children: N/A ? Years of education: N/A Social History Main Topics ? Smoking status: Never Smoker ? Smokeless tobacco: Never Used ? Alcohol use No ? Drug use: No ? Sexual activity: No Other Topics Concern ? Not on file Social History Narrative ? No narrative on file SCREENINGS PHYSICAL EXAM Vitals: As documented in EMR have been reviewed throughout ED course. General: Nontoxic. Conversational. Appears stated age. Obese. Skin: Warm. Dry. Intact. No systemic rashes or lesions. Eyes: Pupils are equally round and reactive to light. Extraocular motions are intact. Clear sclera. No gaze preference. HENT: Atraumatic. Normocephalic. Trachea midline. Mucosal membranes moist. Posterior oropharynx without erythema or exudate. Lungs: Clear to auscultation throughout. Nonlabored breathing. Cardiovascular: No murmurs, rubs, or gallops appreciated. 1+ pedal edema that is symmetric. No JVD. Symmetric radial pulses. Abdomen: Soft. Obese. Tender in right upper and lower quadrant. No rebound or guarding. Nondistended. Bowel sounds are present. Musculoskeletal: No asymmetry. No deformities. No effusions. Neuro: Alert. Oriented x 3. No facial asymmetry. No aphasia. No dysarthria. Midline tongue protrusion. Posterior oropharynx with symmetric elevation. Normal strength in upper extremities. Normal strength in lower extremities. Lifts lower extremities from bed without difficulty. Psych: Appropriate. Cooperative. REVIEWED DIAGNOSTIC RESULTS RADIOLOGY Us Abdomen Limited Result Date: 03/17/2018 Patient Name: KAIA GORDON ---Ultrasound--- Exam Date/Time 03/17/2018 01:17:25 EST Exam US Abdomen Limited Ordering Physician NILSON POSEY Accession Number [id number] CPT4 Codes 13942 () Reason For Exam h/o gallstones, abdominal pain Report US ABDOMEN LIMITED CLINICAL INDICATION: Right upper quadrant and epigastric pain. TECHNIQUE: Right upper quadrant ultrasound of abdomen COMPARISON: None FINDINGS: Liver: Limited evaluation of the liver secondary to poor ultrasound penetration. The visualized portions of the liver are unremarkable. Gallbladder: Gallbladder is distended with bile. There are multiple dependent gallbladder calculi. No gallbladder wall thickening or pericholecystic fluid is seen. Positive reported Gray sign is reported. Bile ducts: Intrahepatic and extrahepatic bile ducts are not dilated Common bile duct: 0.4 cm, within normal limits. Pancreas: Suboptimal visualization of pancreas due to overlying bowel gas. Kidneys: Normal echogenicity without pelvicalyceal dilatation or mass Right kidney measures: 10.7 x 3.2 x 4.7 cm 1.7 x 2 x 1.1 cm superior and 1.2 x 1.6 x 1.4 cm mid renal cortical cyst. IMPRESSION: 1. Cholelithiasis. 2. Distended gallbladder with positive reported Gray's sign. There is lack of pericholecystic fluid or GB wall thickening. Consider fasting state or less likely acute cholecystitis. 3. No biliary dilatation. Report Dictated on --- Final --- Dictating Physician: HEMAL FERNANDO DO, I Signed Date and Time: 03/17/2018 1:58 am Signed by: HEMAL FERNANDO DO, I Transcribed Date and Time: 03/17/2018 1:59 Ct Abdomen Pelvis W Contrast Result Date: 03/17/2018 Patient Name: KAIA GORDON ---CT--- Exam Date/Time 03/17/2018 02:53:[address] Abdomen/Pelvis w/ IV Contrast (IV Onl Ordering Physician Nando QuentinRIOJAS NILSON Accession Number [id number] CPT4 Codes 83743 (CT Abdomen/Pelvis w/ IV Contrast (IV Onl), Q9967 (CT ISOVUE 370MG/ML&[id number]&ML&1) Reason For Exam abd pain, nausea, vomiting Report CT ABDOMEN AND PELVIS WITH CONTRAST CLINICAL INDICATION: Abdominal pain, nausea and vomiting. TECHNIQUE: Multi-axial 3mm sections through the abdomen and pelvis following 75 mL of Isoview contrast media. No oral contrast was administered. Coronal and sagittal reconstructions were reviewed. COMPARISON: None. FINDINGS:Moderate-sized hiatal hernia is noted. Lung bases: Right lower lobe bleb versus pneumatocele. Minimal bibasilar atelectasis. Liver: Normal size and contours. Tiny inferior hepatic dome subcapsular cavernous hemangioma. Biliary tree: Gallbladder is slightly distended with bile. No biliary dilatation. Spleen: Normal. Adrenals: Normal. Pancreas: Normal. Kidneys: Symmetric contrast enhancement without evidence of hydronephrosis. No focal renal lesion is identified. Bilateral parapelvic cysts. Free air or fluid: None. Mesenteric/retroperitoneal: No adenopathy or inflammation. Aorta: Normal caliber of aorta and bilateral common iliac arteries. Bowel: Sigmoid diverticulosis without evidence of acute diverticulitis. No dilatation is noted. Abdominal wall: No ventral hernia is evident. Pelvic organs/viscera: No mass identified. Uterus is anteverted and normal in size. Trace endocervical fluid is noted. Inguinal lymphadenopathy: None. Osseous structures: Lumbar degenerative spondylosis. Slight loss of height of the L1 vertebral body with vertebroplasty cement. IMPRESSION: 1. No acute abdominal or pelvic process. 2. Moderate-sized hiatal hernia. 3. Mild gallbladder distention may be secondary to fasting state. 4. Sigmoid diverticulosis. Bilateral parapelvic cysts. Report Dictated on --- Final --- Dictating Physician: HEMAL FERNANDO DO, I Signed Date and Time: 03/17/2018 3:32 am Signed by: HEMAL FERNANDO DO, I Transcribed Date and Time: 03/17/2018 3:33 LABS: Labs Reviewed CBC WITH AUTO DIFFERENTIAL - Abnormal; Notable for the following: Result Value WBC 12.7 (*) MCV 99.7 (*) Granulocytes % 93.0 (*) Lymphocyte % 3.0 (*) Eosinophils 0.0 (*) Absolute Neut # 11.8 (*) Absolute Lymph # 0.4 (*) All other components within normal limits Narrative: Test Performed by [facility], [facility] [place] [address] COMPREHENSIVE METABOLIC PANEL - Abnormal; Notable for the following: CO2 32 (*) Glucose 205 (*) BUN 21 (*) CREATININE 0.51 (*) ALT 81 (*) AST 159 (*) All other components within normal limits Narrative: Test Performed by [facility], [facility] [place] [address] URINE CULTURE LIPASE Narrative: Test Performed by [facility], [facility] [place] [address] URINALYSIS Narrative: Test Performed by [facility], [address] [place] [address] TROPONIN Narrative: Test Performed by [facility], [facility] [place] [address] URINALYSIS WITH MICROSCOPIC Narrative: Test Performed by [facility], [facility] [place] [address] All other labs were within normal range or not returned as of this dictation. EMERGENCY DEPARTMENT COURSE and DIFFERENTIAL DIAGNOSIS/MDM: ? Nursing notes were reviewed. Patient was evaluated. Orders placed as below. ? EKG (Per Emergency Physician): normal rate, rhythm, possible left atrial abnormality, LVH, nonspecific changes inferiorly, no STEMI. ? Labs reviewed and with mild transaminitis, leukocytosis, likely UTI, prerenal azotemia. ? Imaging reviewed. Patient re-evaluated. ? Daughter and patient informed of results. ? Patient felt improved. I administered a dose of antibiotic here as she has multiple allergies to other common antibiotics. ? Daughter requested records of this visit. I informed them that this would have to be completed through medical records. ? Following this emergency department visit, I have a low suspicion for appendicitis, bowel obstruction, mesenteric ischemia, acute hepatitis, pancreatitis, cholecystitis, ascending cholangitis, incarcerated or strangulated hernia, ruptured abdominal aortic aneurysm, tubo-ovarian abscess, ovarian torsion, ectopic , pelvic inflammatory disease, or other similar, emergent intra-abdominal process. Likely UTI and possibly cholelithiasis. I discussed this with Kaia Greenwoodborn and discussed symptoms that would warrant return to the emergency department. I underscored the importance of following up with MARIUSZ TAYLOR MD. Kaia Gordon understood and was agreeable. Medications ondansetron (ZOFRAN) injection 4 mg (4 mg Intravenous Given 03/17/18 004) morphine injection 4 mg (4 mg Intravenous Given 03/17/18 004) 0.9 % sodium chloride bolus (0 mLs Intravenous Stopped 03/17/18 0118) famotidine (PEPCID) injection 20 mg (20 mg Intravenous Given 03/17/1848) iopamidol (ISOVUE-370) 76 % injection 75 mL (75 mLs Intravenous Given 03/17/18 0209) fosfomycin tromethamine (MONUROL) 3 g PACK 1 packet (1 packet Oral Given 03/17/18 0546) Orders Placed This Encounter Procedures ? Urine Culture ? US ABDOMEN LIMITED ? CT Abdomen Pelvis W Contrast ? CT Abdomen Pelvis W Contrast ? Hemogram (CBC) w/Auto Diff ? Comprehensive Metabolic Panel ? Lipase ? Urinalysis ? Troponin x1 ? Urinalysis with Microscopic ? Catheterization for spec collection ? EKG 12 Lead - Chest Pain ? Insert peripheral IV CRITICAL CARE TIME Not met minutes, excluding separately reportable procedures were spent directly caring for patient, interpreting testing, consulting, and documenting care. There was a high probability of clinically significant/life threatening deterioration in the patient's condition which required my urgent intervention. CONSULTS: None PROCEDURES (if any): Procedures FINAL IMPRESSION 1. Abdominal pain, unspecified abdominal location 2. Acute cystitis without hematuria 3. Calculus of gallbladder without cholecystitis without obstruction DISPOSITION/PLAN DISPOSITION PATIENT REFERRED TO: Mariusz Taylor MD [address] [facility] [id number] 2-[address] Block - Your Surgeon Sunday or Sunday DISCHARGE MEDICATIONS: There are no discharge medications for this patient. (Please note: Portions of this note were completed with a voice recognition program. Efforts were made to edit the dictations but occasionally words and phrases are mis-transcribed.) Form [id number] Nilson Riojas MD (electronically signed) Emergency Medicine Provider Nilson Riojas MD 03/17/18 0927 PHENYTOIN (DILANTIN) Collected: 03/07/2018 Status: F Source: [facility] LEVEL 7:[address] [facility] REPOSITORY Order Comment: 308/2 Time Medication is to be Given? 0000 TYPE CODE TESTS RESULT OUT OF RANGE REFERENCE UNITS LAB L501.7700 10.0-20.0 mL Normal PHENYTOIN 17.5 Performed By: #### L501.7700 #### [facility] [place], [address] CBC W/DIFF, AUTOMATED Collected: 03/06/2018 Status: F Source: [facility] 8:[address] [facility] REPOSITORY Order Comment: 308-2 TYPE CODE TESTS RESULT OUT OF RANGE REFERENCE UNITS LAB L100.1000 4.4-11.0 K/mm3 Low WBC 4.2 LAB L100.1200 4.2-5.4 M/mm3 Low RBC 3.74 LAB L100.1300 12.0-15.0 g/dl Normal HGB 12.3 LAB L100.1400 37-47 % Normal HCT 39.0 LAB L100.1500 81-99 fL High MCV 104.3 LAB L100.1600 27.0-32.0 pg High MCH 32.9 LAB L100.1700 32-36 g/gl Low MCHC 31.5 LAB L100.1810 11.6-14.6 % High RDW CV 14.7 LAB L100.1820 35.1-43.9 fl High RDW SD 55.5 LAB L100.1900 150-450 K/mm3 Low PLT 146 LAB L100.2000 6.2-12.0 fl Normal MPV 10.5 LAB L100.2100 47-70 % Normal NEUT% 59.9 LAB L100.2200 19-41 % Normal LY% 28.9 LAB L100.2300 0-10 % Normal MONO% 7.4 LAB L100.2400 0-5 % Normal EO% 3.1 LAB L100.2500 0-1 % Normal BASO% 0.2 LAB L100.2550 0.0-0.9 % Normal IM GRAN % 0.500 Result Comment: IG% - Immature Granulocytes (promyelocytes, myelocytes and metamyelocytes) > 1% indicates that a LEFT SHIFT is Present. LAB L100.2620 2.0-7.7 X10 3/uL Normal Absolute Neut 2.5 LAB L100.2720 0.83-4.51 X10 3/ul Normal Absolute Lymph 1.21 Performed By: #### L100.0100 #### [facility] [place], [address] COMPREHENSIVE METABOLIC Collected: 03/06/2018 Status: F Source: [facility] 8:[address] [facility] REPOSITORY Order Comment: 308-2 TYPE CODE TESTS RESULT OUT OF RANGE REFERENCE UNITS LAB L501.0100 74-106 mg/dL Normal GLU 91 Result Comment: Please note revised GLUCOSE reference range effective 2017. LAB L501.1000 7-18 mg/dL Normal BUN 18 LAB L501.1100 0.55-1.02 mg/dL Low CREAT,SERUM 0.51 Result Comment: The validity of the calculated GFR AND GFRAA in patients over 70 years has not been determined. Clinical correlation is essential. LAB L501.1110 >60 mL/min Normal EST GFR 126 Result Comment: Non- GFR Calc LAB L501.1115 >60 mL/min Normal EST GFR - AA 153 Result Comment: GFR Calc LAB L501.1300 10-20 RATIO High BUN/CRE 35.2 LAB L501.1500 6.4-8.2 g/dL T Normal PROT 6.5 LAB L501.1800 3.2-5.0 g/dL Low ALB 3.0 LAB L501.1950 2.2-4.2 g/dL Normal GLOB 3.5 LAB L501.2000 0.9-2.4 RATIO Normal A/G 0.9 LAB L501.2200 8.5-10.1 mg/dL Low CA 8.0 LAB L501.4100 15-37 U/L Low AST 12 LAB L501.4305 45-117 U/L Normal ALK P 62 LAB L501.4405 13-56 U/L Normal ALT 16 LAB L501.4600 0.20-1.00 mg/dL T Normal BILI 0.30 LAB L501.5300 136-145 mmol/L NA Normal 140 LAB L501.5600 3.5-5.1 mmol/L K Normal 4.6 LAB L501.5900 98-107 mmol/L CL Normal 104 LAB L501.6100 21.0-32.0 mmol/L Normal CO2 31.0 LAB L501.6200 5-15 Normal GAP 5 Performed By: #### L500.4050, L501.2400 #### [facility] [address] [place], [place], [address] AMYLASE Collected: 03/06/2018 Status: F Source: [place] 8:[address] [facility] REPOSITORY Order Comment: 308-2 TYPE CODE TESTS RESULT OUT OF RANGE REFERENCE UNITS LAB L501.2400 25-115 U/L Normal TARIQ 49 Performed By: #### L500.4050, L501.2400 #### [facility] [address] [facility] [place], [place], [id number] CBC-COMPLETE BLOOD CNT Collected: 09/29/2017 Status: F Source: [facility] NO DIFF 5:[address] [facility] REPOSITORY TYPE CODE TESTS RESULT OUT OF RANGE REFERENCE UNITS LAB L100.1000 4.4-11.0 K/mm3 Normal WBC 6.0 LAB L100.1200 4.2-5.4 M/mm3 Low RBC 3.82 LAB L100.1300 12.0-15.0 g/dl Normal HGB 12.3 LAB L100.1400 37-47 % Normal HCT 38.0 LAB L100.1500 81-99 fL High MCV 99.5 LAB L100.1600 27.0-32.0 pg High MCH 32.2 LAB L100.1700 32-36 g/gl Normal MCHC 32.4 LAB L100.1810 11.6-14.6 % Normal RDW CV 14.6 LAB L100.1820 35.1-43.9 fl High RDW SD 52.7 LAB L100.1900 150-450 K/mm3 Low PLT 122 LAB L100.2000 6.2-12.0 fl Normal MPV 10.0 Performed By: #### L100.0500 #### [facility] [address] [place], [place], [address] BASIC METABOLIC Collected: 09/29/2017 Status: C Source: [place] PROFILE (BMP) 5:[address] [facility] REPOSITORY TYPE CODE TESTS RESULT OUT OF RANGE REFERENCE UNITS LAB L501.0100 74-106 mg/dL High GLU 110 Result Comment: Fasting Glucose result from 100 to 125 mg/dL suggests IMPAIRED HOMEOSTASIS per A.D.A. criteria. Please note revised GLUCOSE reference range effective 2017. AMENDED REPORT 09/29/17755 GLU previously reported as: 45 L mg/dL Glucose result less than 50 mg/dL suggests HYPOGLYCEMIA. Please note revised GLUCOSE reference range effective 2017. LAB L501.1000 7-18 mg/dL Normal BUN 10 Result Comment: AMENDED REPORT 09/29/17755 BUN previously reported as: 4 L mg/dL LAB L501.1100 0.55-1.02 mg/dL CREAT,SERUM Low 0.52 Result Comment: The validity of the calculated GFR AND GFRAA in patients over 70 years has not been determined. Clinical correlation is essential. LAB L501.1110 >60 mL/min Normal EST GFR 125 Result Comment: Non- GFR Calc LAB L501.1115 >60 mL/min Normal EST GFR - AA 152 Result Comment: GFR Calc LAB L501.1300 10-20 RATIO Normal BUN/CRE 19.2 Result Comment: AMENDED REPORT 09/29/17755 BUN/CRE previously reported as: 7.8 L RATIO LAB L501.2200 8.5-10.1 mg/dL Low CA 8.3 Result Comment: AMENDED REPORT 09/29/17755 CA previously reported as: 8.7 mg/dL LAB L501.5300 136-145 mmol/L Normal NA 142 LAB L501.5600 3.5-5.1 mmol/L Normal K 4.2 LAB L501.5900 98-107 mmol/L Normal CL 103 LAB L501.6100 21.0-32.0 mmol/L Normal CO2 31.0 Result Comment: AMENDED REPORT 09/29/17756 CO2 previously reported as: 14.0 L mmol/L LAB L501.6200 5-15 Normal GAP 8 Result Comment: AMENDED REPORT 09/29/17756 GAP previously reported as: 25 H Performed By: #### L500.2500 #### [facility] [place], [address] CBC-COMPLETE BLOOD CNT Collected: 06/02/2017 Status: F Source: BEATRIZ NO DIFF 6:[address] [facility] REPOSITORY Order Comment: 310-2 TYPE CODE TESTS RESULT OUT OF RANGE REFERENCE UNITS LAB L100.1000 4.4-11.0 K/mm3 Normal WBC 5.4 LAB L100.1200 4.2-5.4 M/mm3 Low RBC 3.38 LAB L100.1300 12.0-15.0 g/dl Low HGB 11.4 LAB L100.1400 37-47 % Low HCT 34.8 LAB L100.1500 81-99 fL High MCV 103.0 LAB L100.1600 27.0-32.0 pg High MCH 33.7 LAB L100.1700 32-36 g/gl Normal MCHC 32.8 LAB L100.1810 11.6-14.6 % Normal RDW CV 14.2 LAB L100.1820 35.1-43.9 fl High RDW SD 52.8 LAB L100.1900 150-450 K/mm3 Normal PLT 228 LAB L100.2000 6.2-12.0 fl Normal MPV 9.5 Performed By: #### L100.0500 #### [facility] [address] [place], [address] COMPREHENSIVE METABOLIC Collected: 06/02/2017 Status: F Source: BEATRIZ PROFIL 6:[address] [facility] REPOSITORY Order Comment: 310-2 TYPE CODE TESTS RESULT OUT OF RANGE REFERENCE UNITS LAB L501.0100 74-106 mg/dL Normal GLU 87 Result Comment: Please note revised GLUCOSE reference range effective 2017. LAB L501.1000 7-18 mg/dL Normal BUN 16 LAB L501.1100 0.55-1.02 mg/dL Low CREAT,SERUM 0.45 Result Comment: The validity of the calculated GFR AND GFRAA in patients over 70 years has not been determined. Clinical correlation is essential. LAB L501.1110 >60 mL/min Normal EST GFR 148 Result Comment: Non- GFR Calc LAB L501.1115 >60 mL/min Normal EST GFR - AA 180 Result Comment: GFR Calc LAB L501.1300 10-20 RATIO High BUN/CRE 35.9 LAB L501.1500 6.4-8.2 g/dL Low T PROT 6.3 LAB L501.1800 3.2-5.0 g/dL Low ALB 2.7 LAB L501.1950 2.2-4.2 g/dL Normal GLOB 3.6 LAB L501.2000 0.9-2.4 RATIO Low A/G 0.8 LAB L501.2200 8.5-10.1 mg/dL Low CA 8.1 LAB L501.4100 15-37 U/L Normal AST 19 LAB L501.4305 45-117 U/L Normal ALK P 76 LAB L501.4405 13-56 U/L Normal ALT 24 Result Comment: Please note revised ALT reference range effective 2017. LAB L501.4600 0.20-1.00 mg/dL Normal T BILI 0.30 LAB L501.5300 136-145 mmol/L Normal NA 138 LAB L501.5600 3.5-5.1 mmol/L Normal K 4.2 LAB L501.5900 98-107 mmol/L Normal CL 103 LAB L501.6100 21.0-32.0 mmol/L Normal CO2 30.0 LAB L501.6200 5-15 Normal GAP 5 Performed By: #### L500.4050, L501.5200, L501.9520 #### [facility] [address] [place], [place], [address] MAGNESIUM Collected: 06/02/2017 Status: F Source: BEATRIZ 6:[address] [facility] REPOSITORY Order Comment: 310-2 TYPE CODE TESTS RESULT OUT OF RANGE REFERENCE UNITS LAB L501.5200 1.6-2.6 mg/dL Normal MG 2.4 Result Comment: Please note revised Magnesium reference range effective 2017. Performed By: #### L500.4050, L501.5200, L501.9520 #### [facility] [address] [place], [address] THYROID STIM HORMONE Collected: 06/02/2017 Status: F Source: GROOM (TSH) 6:[address] [facility] REPOSITORY Order Comment: 310-2 TYPE CODE TESTS RESULT OUT OF RANGE REFERENCE UNITS LAB L501.9520 0.358-3.74 uIU/mL Normal TSH 1.80 Performed By: #### L500.4050, L501.5200, L501.9520 #### [facility] [address] [place], [address] VITAMIN D,25 HYDROXY Collected: 06/02/2017 Status: F Source: GROOM 6:[address] [facility] REPOSITORY Order Comment: 310-2 TYPE CODE TESTS RESULT OUT OF REFERENCE UNITS RANGE LAB L506.1000 29.95-100.01 ng/mL Low Vitamin D 29.9 25-OH Result Comment: Vitamin D 25(OH) Status Range Deficiency <20 ng/mL (50nmol/L) Insuffciency 20 - 30 ng/mL (50 - 75 nmol/L) Sufficiency 30 - 100 ng/mL (75 - 250 nmol/L) Toxicity >100 ng/mL (>250 nmol/L) Performed By: #### L506.1000 #### [facility] [address] [place], [address] DILANTIN Collected: 05/10/2017 Status: F Source: [facility] 10:05 AM HOSPITAL REPOSITORY TYPE CODE TESTS RESULT OUT OF REFERENCE UNITS RANGE LAB DIL(LOINC) 10.0-20.0 ug/mL High Phenytoin 24.0 Result Comment: Performed at [email or web address] [address] [address] LAB DILO(LOINC) Dose NOT amount, REPORTED LAB DILD(LOINC) Date NOT last dose, REPORTED LAB DILT(LOINC) Time NOT last dose, REPORTED Performed By: #### DILC, FDIL #### [facility] [address] [place] [address] PHENYTOIN, FREE Collected: 05/10/2017 Status: F Source: [facility] 10:05 AM HOSPITAL REPOSITORY TYPE CODE TESTS RESULT OUT OF RANGE REFERENCE UNITS LAB FDIL(LOINC) 1.0-2.0 ug/mL High 2.9 Phenytoin, Free Result Comment: Performed at [facility] [address] Performed By: #### DILC, FDIL #### [address] [address] DILANTIN Collected: 05/04/2017 Status: F Source: [facility] 8:15 AM HOSPITAL REPOSITORY TYPE CODE TESTS RESULT OUT OF REFERENCE UNITS RANGE LAB DIL(LOINC) 10.0-20.0 ug/mL High Phenytoin 24.7 Result Comment: Performed at [address] [address] LAB DILO(LOINC) Dose NOT amount, REPORTED LAB DILD(LOINC) Date NOT last dose, REPORTED LAB DILT(LOINC) Time NOT last dose, REPORTED Performed By: #### DILC #### [address] [address] Observed: 04/26/2017 Status: F Source: [facility] FLU A/B AG DETECTION 5:41 PM HOSPITAL REPOSITORY Specimen Description .NASOPHARYNGEAL SWAB Performed at [address] [address] Special Requests [id number] Performed at [address] [address] Direct Exam POSITIVE for Influenza A Antigen NEGATIVE for Influenza B Antigen Performed at [address] [address] Report Status FINAL 04/26/2017 Performed By: #### FLUAD #### [address] [address] ALLERGIES ALLERGIES No Allergies Records FoundENCOUNTERS ENCOUNTERS ADMIT/DISCHARGE ACCOUNT NUMBER ADMITTING ENCOUNTER LOCATION SOURCE CLASS 04/08/2018 [id number] [facility] ding:BEATA.ACW Repository 300 04/04/2018 [id number] [facility] ding:ACW Repository 300 04/02/2018 [id number] BRAVO [facility] Other [place] Repository 03/28/2018 [id number] [facility] ding:OLS.ACW Repository 300 03/20/2018 [id number] Ambulatory [facility] Repository 03/16/2018 [id number] Emergency [facility]in[facility] EDRoom: 2A System 444Bed: Repository [id number] 03/07/2018 [id number] [facility] ding:OLS.ACW Repository 300 03/06/2018 [id number] [facility] ding:OLS.ACW Repository 300 09/29/2017 [id number] [facility] ding:OLS.ACW Repository 300 06/02/2017 [id number] [facility] ding:OLS.ACW Repository 300 PAYERS PAYERS ENCOUNTER GUARANTOR PAYER SUBSCRIBER SOURCE 04/08/2018 Kaia Urban Primary [facility]K [facility]:SELF PAY [facility] Number: [place] [address]Jek: Date:2018-04-08 () 04/04/2018 Kaia Urban Primary NOT GIVENUNK [facility] Insurance:SELF PAY [facility] Number: Effective [place] [address]Mdw: Date:2018-04-04 () 03/28/2018 Kaia Gordon147 Primary Kaia [place] NKECHI Insurance:MEDICARE FreebornDOB: [facility] PART A [facility] [id number] Number: [place]ository [place], [place] [address]Spe: [id number] Date:2018-03-28 () 03/28/2018 Secondary Kaia Beatriz Insurance:BUCKEYE FreebornDOB: [facility] [id number] Number: Repository [id number] Date:0734-71-70VS [address] [place] [address]KJ: 03/28/2018 Tertiary NOT GIVENUNK Beatriz Insurance:SELF PAY [facility] Number: Effective Repository Date:2018-03-28 03/20/2018 Kaia Primary Kaia [facility] FreebornDOB: Insurance:MedicarePol FreebornDOB: System icy Number: Effective [id number] Repository [address] Date: [place], [place] [address]Nqo: (HP) 03/20/2018 Secondary Kaia [facility] Insurance:MedicarePol FreebornDOB: System icy Number: Effective [id number] Repository Date: 03/20/2018 Tertiary Kaia [facility] Insurance:BuckeyePoli FreebornDOB: System cy Number: Effective [id number] Repository Date: 03/16/2018 Kaia Primary Kaia [facility] FreebornDOB: Insurance:MedicarePol FreebornDOB: System icy Number: Effective [id number] Repository [address] Date: [place], [place] [address]Puy: (HP) 03/16/2018 Secondary Kaia [facility] Insurance:MedicarePol FreebornDOB: System icy Number: Effective [id number] Repository Date: 03/16/2018 Tertiary Kaia [facility] Insurance:BuckeyePoli FreebornDOB: System cy Number: Effective [id number] Repository Date: 03/07/2018 Kaia [id number] Primary Kaia [place] Insurance:MEDICARE FreebornDOB: [facility] [id number] Number: Repository [place], [place] [address]Zhx: [id number] Date:2018-03-07 (HP) 03/07/2018 Secondary Kaia Beatriz Insurance:BUCKEYE FreebornDOB: [facility] [id number] [facility] PLANPolicy Number: Repository [id number] Date:4900-50-58WE [address] [place] [address]RC: 03/07/2018 Tertiary NOT GIVENUNK [place] Insurance:SELF PAY [facility] Number: Effective Repository Date:2018-03-07 03/06/2018 Kaia [id number] Primary Kaia [place] Insurance:MYCARE FreebornDOB: [facility] *[place] [id number] NETWORKPolicy Number: Repository [place], [place] [address]Elo: [id number] Date:0272-48-51ZA [address] (TS) [address] [place] [address]PQ: 03/06/2018 Secondary NOT GIVENUNK Beatriz Insurance:SELF PAY [facility] Number: Effective Repository Date:2018-03-06 09/29/2017 Kaia Primary Kaia Beatriz [id number] Insurance:MEDICARE FreebornDOB: [facility] PART A [facility] [id number] Number[place] Repository [id number]: 330 [id number] [phone] (HP) Date:2017-09-29 09/29/2017 Secondary Kaia [place] Insurance:[facility]URSANDRAE FreebornB: [facility] [id number] Hospital PLANPolicy Number: Repository [id number] Date:7579-59-23BH [address] [place] [address]IG: 09/29/2017 Tertiary NOT GIVENUNK Beatriz Insurance:SELF PAY [facility] Number: Effective Repository Date:2017-09-29 06/02/2017 Kaia Primary Kaia [place] [id number] Insurance:MYCARE [facility]bornD[facility]: [facility] [id number], [place] NETWORKPolic Number: Repository [id number]: [phone] [id number] [phone] (HP) Date:6655-31-76[address] [place] [address] [place] [address]CN: 06/02/2017 Secondary NOT GIVENUNK [place] Insurance:SELF PAY [facility] Number: Effective Repository Date:2017-06-02
== END ==
LOC: OLS.ACW300 05:00
PROVIDERS: Visit Provider Family Medicine
DX: R10.84 Generalized abdominal pain (principal); S82.201S Unspecified fracture of shaft of right tibia, sequela; I10 Essential (primary) hypertension; E78.5 Hyperlipidemia, unspecified; K21.9 Gastro-esophageal reflux disease without esophagitis; Z47.89 Encounter for other orthopedic aftercare
CPT/HCPCS: 36415; 80053; 82150; 85025

== ENCOUNTER → 2018-03-07 05:00 | Outpatient (REF) | payer MEDICARE, MEDICAID, SELFPAY ==
[2018-03-07 09:00] LABS: Phenytoin (Dilantin) Level 17.5 mL (10.0-20.0)
== END ==
LOC: OLS.ACW300 05:00
PROVIDERS: Visit Provider Family Medicine
DX: S82.201S Unspecified fracture of shaft of right tibia, sequela (principal); Z47.89 Encounter for other orthopedic aftercare; I10 Essential (primary) hypertension; E78.5 Hyperlipidemia, unspecified; K21.9 Gastro-esophageal reflux disease without esophagitis
CPT/HCPCS: 36415; 80185

== ENCOUNTER → 2018-03-28 01:00 | Outpatient (REF) | payer MEDICARE, MEDICAID, SELFPAY ==
[2018-03-28 09:25] LABS: Color, Urine Yellow (Yellow); Glucose, Dipstick Normal (Normal); Ketone-Dipstick Negative (Negative); Leukocyte Esterase-Dipstick Negative /ul (Negative); Nitrite-Dipstick Negative (Negative); Occult Blood-Urine Negative /ul (Negative); Protein-Dipstick Negative (Negative); Urine Bilirubin Dipstick Negative (Negative); Urine Clarity Sl. Cloudy (Clear); Urine Urobilinogen Normal (Normal)
== END ==
LOC: OLS.ACW300 01:00
PROVIDERS: Visit Provider Family Medicine
DX: S82.201S Unspecified fracture of shaft of right tibia, sequela (principal); Z47.89 Encounter for other orthopedic aftercare; I10 Essential (primary) hypertension; E78.5 Hyperlipidemia, unspecified; K21.9 Gastro-esophageal reflux disease without esophagitis
CPT/HCPCS: 81002; 87086; 87088

== ENCOUNTER → 2018-04-04 02:00 | Outpatient (REF) | payer MEDICARE, MEDICAID, SELFPAY ==
--- OUTSIDE RECORDS SUMMARY | 2018-06-08 20:30 | XMS RPT_ITS ---
[...] SOURCE 04/02/2018 Active Generalized HEMAL BLOCK Active [place] abdominal pain / Clinic Other R10.84(ICD-10) [place] Repository 04/10/2018 Unknown S82.201S - Mariusz Taylor Active [place] Unspecified [facility] fracture of shaft Hospital of right tibia, Repository sequela / S82.201S(ICD-10) 04/10/2018 Unknown Z47.89 - Encounter Mariusz Taylor Active [place] for other [facility] orthopedic Hospital aftercare / Repository Z47.89(ICD-10) 04/10/2018 Unknown I10 - Essential Mariusz Taylor Active [place] (primary) Community hypertension / Hospital I10(ICD-10) Repository 04/10/2018 Unknown E78.5 - Mariusz Taylor Active [place] Hyperlipidemia, Community unspecified / Hospital E78.5(ICD-10) Repository 04/10/2018 Unknown K21.9 - Mariusz Taylor Active [place] Gastro-esophageal [facility] reflux disease Hospital without esophagitis Repository / [...] 03/16/2018 Admitting Allergy status to [place], [facility] Diagnosis analgesic agent [facility] status / Repository Z88.6(ICD-10) 03/16/2018 Admitting Allergy status to [place], Active [facility] Diagnosis sulfonamides status [facility] / Z88.2(ICD-10) Repository 03/16/2018 Admitting Allergy status to [place], Active [facility] Diagnosis penicillin / [facility] Z88.0(ICD-10) Repository 03/16/2018 Admitting Allergy status to [place], Active [facility] Diagnosis oth drug/meds/biol [facility] [...] Status: F Source: [place] LEVEL 6:15 AM [facility] REPOSITORY Order Comment: DO NOT KNOW THE TIME MED. IS TO BE GIVEN, NURSE WAS NOT AVAILABLE WHEN I CALLED Time Medication is to be Given? 0000 TYPE CODE TESTS RESULT OUT OF RANGE REFERENCE UNITS LAB L501.7700 10.0-20.0 mL Normal PHENYTOIN 12.6 Performed By: #### L501.7700 #### [facility] [address] [place], [address] Observed: 04/04/2018 Status: F Source: [place] CULTURE, URINE 2:00 AM [facility] REPOSITORY STRAIGHT CATH Urine Culture ORGANISM 1: Proteus mirabilis [place] Count >100,000 Proteus mirabilis: REACTION Ampicillin $ [...] <=20 S (NF) indicates non-formulary drug at [facility]. Approval by Infectious Disease Specialist required before non-formulary drugs may be ordered and/or dispensed. Performed By: #### M100.0650 #### [facility] [address] [place], [place], [address] ANES POST Observed: 04/02/2018 Status: COMPLETED Source: [place] 1:20 PM CLINIC OTHER CAMPUS REPOSITORY HNO ID: [id number] Author: Quang Waters Service: Anesthesiology Author Type: [...] 02, 2018 TIME: 1:20 PM PAGER/CONTACT #: [phone] NURSING PROG Observed: 04/02/2018 Status: COMPLETED Source: [place] 12:40 PM [facility] REPOSITORY HNO ID: [id number] Author: Ruth SaucedoRn) VU Valentin Service: (none) Author Type: Registered Nurse Type: Nursing Progress Note Filed: 04/02/2018 12:41 PM Note Text: Ambulance service came to transport pt back to [facility] PT ED Observed: 04/02/2018 Status: COMPLETED Source: [place] 12:01 PM [facility] REPOSITORY HNO ID: [id number] Author: Melisa SaucedoRn) VU Loredo Service: Nursing [...] Signed By: Melisa Loredo RN In Department: [facility] ENDOSCOPY SURGICAL PATHOLOGY Observed: 04/02/2018 Status: F Source: [place] 11:15 AM [facility] OTHER [place] REPOSITORY Specimen originated from [facility] Specimen #: [id number] Submitting Physician: Hemal Block M.D. FINAL DIAGNOSIS [...] in one cassette. Gross examination performed at [facility], [address] [place] [address] RVW 04/02/2018 5:22:58 PM Date of Report: 04/04/2018 Date of Procedure: 04/02/2018 Date of Receipt: 04/02/2018 Submitted by: Hemal Block M.D. Location: [facility] Diagnostic interpretation performed at [facility], [address] [place] [address]. Performed By: #### PATHS #### [employer] [address] [place] [address] [place] [address] [phone] BRIEF OP NOT Observed: 04/02/2018 Status: COMPLETED Source: [place] 10:33 AM [facility] REPOSITORY HNO ID: [id number] Author: Hemal Block Service: (none) Author Type: Physician Type: Brief Op Note Filed: 04/02/2018 10:52 AM Note Text: BRIEF OPERATIVE / PROCEDURE NOTE LOG ID: [id number] SURGERY/PROCEDURE DATE: 04/02/2018 INCISION/PROCEDURE START TIME: INCISION CLOSE/PROCEDURE END TIME: SURGEON(S)/PROCEDURALIST(S) AND VACUUM FORM OPERATOR(S): Surgeon(s) and Role: * Hemal Block - Primary No Additional Staff SURGERY/PROCEDURE(S): egd w bx ANESTHESIA: Monitored Anesthesia Care FINDINGS: 5cm hh ESTIMATED BLOOD LOSS: 2 mls SPECIMENS: duo/gas/ge jnx COMPLICATIONS: None PRE-OP/PRE-PROCEDURE DIAGNOSIS: abd pain/nausea POST-OP/POST-PROCEDURE DIAGNOSIS: As above SIGNATURE: Hemal Block MD PATIENT NAME: Kaia Gordon DATE: April 02, 2018 TIME: 10:33 AM PAGER/CONTACT #: [phone] ANES PREOP Observed: 04/02/2018 Status: COMPLETED Source: [place] 10:12 AM [facility] REPOSITORY HNO ID: [id number] Author: Quang Waters Service: Anesthesiology Author Type: [...] April 02, 2018 TIME: 10:12 AM CSN: [id number] PT ED Observed: 04/02/2018 Status: COMPLETED Source: [place] 10:08 AM CLINIC OTHER CAMPUS REPOSITORY HNO ID: [id number] Author: Lisa (Rn) VU Paniagua Service: (none) [...] Signed By: Lisa Paniagua RN In Department: [facility] ENDOSCOPY NURSING PROG Observed: 04/01/2018 Status: COMPLETED Source: [place] 12:22 PM CLINIC OTHER CAMPUS REPOSITORY HNO ID: [id number] Author: Lara (Rn) VU Ward Service: Nursing [...] Anesthesia Review: N/A Narrative: Minimal information in [facility] . Most info rec'd from cindy Nevarez at [facility]. Hx seizures-- per staff--none since admitted to [facility] 05/2017 Per Geri at [facility]--she resides there because she can't take care of herself Pre-op Considerations: Pt is alert and oriented per staff Does not ambulate--uses WC, coming by ambulance tomorrow from [facility]. Per Staff, pt's sister Loan will be there--ML for Loan to call back and verify. Chart Check: COMPLETED Needs H and P dos Lara Ward RN April 01, 2018 12:22 PM PATIENT PREOPERATIVE INSTRUCTIONS Pre op instructions given to Geri, cindy at [facility] No ref. provider found has scheduled you for your procedure at this surgery center: [facility]: [phone] -- [address] [facility] [address]. Please read below carefully for your personalized [...] shave if extremity surgery remove all nail welsh pre op and do not shave site [...] Procedures: - YOU MUST HAVE A RESPONSIBLE COUPLING MACHINE OPERATOR TAKE YOU HOME. A COMMUNITY HEALTH WORKER OR INSURANCE AGENCY OWNER CANNOT BE MADE A RESPONSIBLE COUPLING MACHINE OPERATOR. +++ Pt coming by ambulance from [facility] - We recommend that a responsible [...] Status: F Source: [place] (DIPSTICK) 1:00 AM [facility] REPOSITORY Order Comment: How was Urine Obtained? [...] ESTERASE Negative Performed By: #### L400.2010 #### [facility] [address] [facility] [place], [address] Observed: 03/28/2018 Status: F Source: [place] CULTURE, URINE 1:00 AM [facility] REPOSITORY Urine Culture ORGANISM 1: Mixed Gram Positive Organisms [place] Count 50,000-80,000 MIX CULTURE Mixed contaminants. Submit a new specimen if indicated. Performed By: #### M100.0650 #### [facility] [address] [facility] [place], [address] HOSP Observed: 03/28/2018 Status: COMPLETED Source: [place] 12:00 AM CLINIC OTHER CAMPUS REPOSITORY Patient:Kaia Gordon MRN: <[id number]> Height:4' 11(1.499 m) Weight:215 lb (97.523 kg) [...] days CNCO Observed: 03/21/2018 Status: COMPLETED Source: [place] 12:00 AM [facility] [place] RE[facility] Letter Text Kaia Gordon [facility] Doretha Alicea MD [address] [place] [address] Kaia Gordon [address] [place] [address] March 21, 2018 Kaia Gordon Dear Ms. Gordon, It was noted that you did not keep your scheduled appointment on 03/20. If your medical problem has not resolved, please call our office to reschedule an appointment. Sincerely, Doretha Alicea MD CT ABDOMEN/PELVIS W/ Observed: 03/17/2018 Status: F Source: [place] 3:27 AM SYSTEM REPOSITORY Patient Name: KAIA GORDON CT Exam Date/Time 03/17/2018 02:53:[address] Abdomen/Pelvis w/ IV Contrast (IV Onl Ordering Physician NILSON POSEY Accession Number [id number] CPT4 Codes 97977 (CT Abdomen/Pelvis w/ IV Contrast (IV Onl), Q9967 (CT ISOVUE 370MG/[id number]) Reason For Exam abd pain, nausea, vomiting [...] 3:33 URINALYSIS,MACRO Collected: 03/17/2018 Status: F Source: [place] 2:06 AM SYSTEM REPOSITORY TYPE CODE TESTS RESULT OUT OF REFERENCE UNITS RANGE LAB APPUR Clear NA Appearance CLOUDY LAB COLUR Lt. Yellow NA Color DK YELLOW LAB USG 1.005-1.030 NA Specific Normal Dumas,Urine 1.026 LAB UPH 5.0-8.0 NA pH,Urine Normal [...] NEG Performed By: #### UAMAC, UAMIC #### [employer] [address] [place] [address] URINALYSIS,MICROSCOPIC Collected: Status: F Source: [place] 03/17/2018 2:06 AM [facility]ALTH SYSTEM REPOSITORY TYPE CODE TESTS RESULT OUT OF REFERENCE UNITS RANGE LAB WBCU 0-5 /[HPF] WBC,Urine 25 LAB RBCU 0-2 /[HPF] RBC,Urine 2 LAB EPIU 3-5 /[HPF] Epithelial Cells TRACE LAB ADRIENNE Negative NA Bacteria 4 + LAB HYL 0-1 /[LPF] Cast, Hyaline 3 Performed By: #### UAMAC, UAMIC #### [employer] [address] [place] [address] US ABDOMEN LIMITED Observed: 03/17/2018 Status: F Source: [place] 1:53 AM SYSTEM REPOSITORY Patient Name: KAIA GORDON Ultrasound Exam Date/Time 03/17/2018 01:17:25 EST Exam US Abdomen Limited Ordering Physician NILSON POSEY Accession Number [id number] CPT4 Codes 72492 () Reason For Exam h/o gallstones, abdominal [...] METABOLIC PANEL Collected: 03/17/2018 Status: F Source: [place] 12:43 AM SYSTEM REPOSITORY TYPE CODE TESTS [...] By: #### HEMDF, CMP3, LIPA4, TROPN #### [employer] [address] [place] [address] LIPASE Collected: 03/17/2018 Status: F Source: [place] 12:43 AM SYSTEM REPOSITORY TYPE CODE TESTS RESULT OUT OF RANGE REFERENCE UNITS LAB LIPA4 23-300 U/L Normal Lipase 32 Performed By: #### HEMDF, CMP3, LIPA4, TROPN #### [employer] [address] [place] [address] TROPONIN I Collected: 03/17/2018 Status: F Source: [place] 12:43 AM SYSTEM REPOSITORY TYPE CODE TESTS RESULT OUT OF RANGE REFERENCE UNITS LAB TROP4 0.000-0.034 ng/mL Normal Troponin I < 0.012 Result Comment: 0.046 - 0.400 = Indeterminate > 0.400 = Consider Myocardial Injury Performed By: #### HEMDF, CMP3, LIPA4, TROPN #### [employer] [address] [place] [address] HEMOGRAM W/ AUTODIFF Collected: 03/17/2018 Status: F Source: [place] 12:42 AM SYSTEM REPOSITORY TYPE CODE TESTS [...] By: #### HEMDF, CMP3, LIPA4, TROPN #### [facility] [address] [place] [address] ED PROVIDER NOTE Observed: 03/16/2018 Status: F Source: [place] 11:31 PM SYSTEM REPOSITORY [facility] ED eMERGENCY dEPARTMENT eNCOUnter Pt Name: Kaia [...] Limited Ordering Physician NILSON POSEY Accession Number [id number] CPT4 Codes 16508 () Reason For Exam h/o gallstones, abdominal [...] Ordering Physician Nando QuentinRIOJAS NILSON Accession Number [id number] CPT4 Codes 93839 (CT Abdomen/Pelvis w/ IV Contrast (IV Onl), Q9967 (CT ISOVUE 370MG/ML&[id number]&ML&1) Reason For Exam abd pain, nausea, vomiting [...] within normal limits Narrative: Test Performed by [facility], [facility] [place] [address] COMPREHENSIVE METABOLIC PANEL - Abnormal; Notable for the following: CO2 32 (*) Glucose 205 (*) BUN 21 (*) CREATININE 0.51 (*) ALT 81 (*) AST 159 (*) All other components within normal limits Narrative: Test Performed by [facility], [facility] [place] [address] URINE CULTURE LIPASE Narrative: Test Performed by [facility], [facility] [place] [address] URINALYSIS Narrative: Test Performed by [facility], [address] [place] [address] TROPONIN Narrative: Test Performed by [facility], [facility] [address] [place] [address] URINALYSIS WITH MICROSCOPIC Narrative: Test Performed by [facility], [facility] [place] [address] All other labs were within normal range [...] DISPOSITION PATIENT REFERRED TO: Mariusz Taylor MD [address] [facility], [facility] [id number] 2-[address] Block - Your Surgeon [...] Status: F Source: [place] LEVEL 7:05 AM [facility] REPOSITORY Order Comment: 308/2 Time Medication is to be Given? 0000 TYPE CODE TESTS RESULT OUT OF RANGE REFERENCE UNITS LAB L501.7700 10.0-20.0 mL Normal PHENYTOIN 17.5 Performed By: #### L501.7700 #### [facility] [place], [address] CBC W/DIFF, AUTOMATED Collected: 03/06/2018 Status: F Source: [place] 8:05 AM [facility] REPOSITORY Order Comment: 308-2 TYPE CODE TESTS [...] Lymph 1.21 Performed By: #### L100.0100 #### [facility] [place], [address] COMPREHENSIVE METABOLIC Collected: 03/06/2018 Status: F Source: [place] [facility] 8:05 AM [facility] REPOSITORY Order Comment: 308-2 TYPE CODE TESTS [...] 5 Performed By: #### L500.4050, L501.2400 #### [facility] [address] [place], [place], [address] AMYLASE Collected: 03/06/2018 Status: F Source: [place] 8:05 AM [facility] REPOSITORY Order Comment: 308-2 TYPE CODE TESTS RESULT OUT OF RANGE REFERENCE UNITS LAB L501.2400 25-115 U/L Normal TARIQ 49 Performed By: #### L500.4050, L501.2400 #### [facility] [address] [facility] [place], [place], [address] CBC-COMPLETE BLOOD CNT Collected: 09/29/2017 Status: F Source: [place] NO DIFF 5:40 AM [facility] REPOSITORY TYPE CODE TESTS RESULT OUT OF [...] MPV 10.0 Performed By: #### L100.0500 #### [facility] [address] [facility] [place], [place], [address] BASIC METABOLIC Collected: 09/29/2017 Status: C Source: [place] PROFILE (BMP) 5:40 AM [facility] REPOSITORY TYPE CODE TESTS RESULT OUT OF [...] 25 H Performed By: #### L500.2500 #### [facility] [place], [address] CBC-COMPLETE BLOOD CNT Collected: 06/02/2017 Status: F Source: [place] NO DIFF 6:45 AM [facility] REPOSITORY Order Comment: 310-2 TYPE CODE TESTS [...] MPV 9.5 Performed By: #### L100.0500 #### [facility] [address] [place], [address] COMPREHENSIVE METABOLIC Collected: 06/02/2017 Status: F Source: [place] PROFIL 6:45 AM [facility] REPOSITORY Order Comment: 310-2 TYPE CODE TESTS [...] Performed By: #### L500.4050, L501.5200, L501.9520 #### [facility] [address] [place], [place], [address] MAGNESIUM Collected: 06/02/2017 Status: F Source: [place] 6:45 AM [facility] REPOSITORY Order Comment: 310-2 TYPE CODE TESTS RESULT OUT OF RANGE REFERENCE UNITS LAB L501.5200 1.6-2.6 mg/dL Normal MG 2.4 Result Comment: Please note revised Magnesium reference range effective 2017. Performed By: #### L500.4050, L501.5200, L501.9520 #### [facility] [address] [place], [address] THYROID STIM HORMONE Collected: 06/02/2017 Status: F Source: [place] (TSH) 6:45 AM [facility] REPOSITORY Order Comment: 310-2 TYPE CODE TESTS RESULT OUT OF RANGE REFERENCE UNITS LAB L501.9520 0.358-3.74 uIU/mL Normal TSH 1.80 Performed By: #### L500.4050, L501.5200, L501.9520 #### [facility] [address] [place], [address] VITAMIN D,25 HYDROXY Collected: 06/02/2017 Status: F Source: [place] 6:45 AM [facility] REPOSITORY Order Comment: 310-2 TYPE CODE TESTS RESULT OUT OF REFERENCE UNITS RANGE LAB L506.1000 29.95-100.01 ng/mL Low Vitamin D 29.9 25-OH Result Comment: Vitamin D 25(OH) Status Range Deficiency <20 ng/mL (50nmol/L) Insuffciency 20 - 30 ng/mL (50 - 75 nmol/L) Sufficiency 30 - 100 ng/mL (75 - 250 nmol/L) Toxicity >100 ng/mL (>250 nmol/L) Performed By: #### L506.1000 #### [facility] [address] [place], [address] DILANTIN Collected: 05/10/2017 Status: F Source: [facility] 10:05 AM HOSPITAL REPOSITORY TYPE CODE TESTS RESULT OUT OF REFERENCE UNITS RANGE LAB DIL(LOINC) 10.0-20.0 ug/mL High Phenytoin 24.0 Result Comment: Performed at [employer] [address] [address] LAB DILO(LOINC) Dose NOT amount, REPORTED LAB DILD(LOINC) Date NOT last dose, REPORTED LAB DILT(LOINC) Time NOT last dose, REPORTED Performed By: #### DILC, FDIL #### [facility] [address] [place] [address] PHENYTOIN, FREE Collected: 05/10/2017 Status: F Source: [facility] 10:05 AM HOSPITAL REPOSITORY TYPE CODE TESTS RESULT OUT OF RANGE REFERENCE UNITS LAB FDIL(LOINC) 1.0-2.0 ug/mL High 2.9 Phenytoin, Free Result Comment: Performed at [employer] [address] Performed By: #### DILC, FDIL #### [address] [address] DILANTIN Collected: 05/04/2017 Status: F Source: [facility] 8:15 AM HOSPITAL REPOSITORY TYPE CODE TESTS RESULT OUT OF REFERENCE UNITS RANGE LAB DIL(LOINC) 10.0-20.0 ug/mL High Phenytoin 24.7 Result Comment: Performed at [address] [address] LAB DILO(LOINC) Dose NOT amount, REPORTED LAB DILD(LOINC) Date NOT last dose, REPORTED LAB DILT(LOINC) Time NOT last dose, REPORTED Performed By: #### DILC #### [address] [address] Observed: 04/26/2017 Status: F Source: [facility] FLU A/B AG DETECTION 5:41 PM HOSPITAL REPOSITORY Specimen Description .NASOPHARYNGEAL SWAB Performed at [address] [address] Special Requests [id number] Performed at [address] [address] Direct Exam POSITIVE for Influenza A Antigen NEGATIVE for Influenza B Antigen Performed at [address] [address] Report Status FINAL 04/26/2017 Performed By: #### FLUAD #### [address] [address] ALLERGIES ALLERGIES No Allergies Records FoundENCOUNTERS ENCOUNTERS ADMIT/DISCHARGE ACCOUNT NUMBER ADMITTING ENCOUNTER LOCATION SOURCE CLASS 04/08/2018 [id number] [facility] ding:BEATA.ACW Repository 300 04/04/2018 [id number] [facility] ding:ACW Repository 300 04/02/2018 [id number] BRAVO [facility] Other [place] Repository 03/28/2018 [id number] [facility] ding:OLS.ACW Repository 300 03/20/2018 [id number] Ambulatory [facility] Repository 03/16/2018 [id number] Emergency [facility] EDRoom: 2A System 444Bed: Repository [id number] 03/07/2018 [id number] [facility] ding:OLS.ACW Repository 300 03/06/2018 [id number] [facility] ding:OLS.ACW Repository 300 09/29/2017 [id number] [facility] ding:OLS.ACW Repository 300 06/02/2017 [id number] [facility] ding:OLS.ACW Repository 300 PAYERS PAYERS ENCOUNTER GUARANTOR PAYER SUBSCRIBER SOURCE 04/08/2018 Kaia Urban [facility]SELF PAY [facility] Number: [place] [address]Uou: Date:2018-04-08 () 04/04/2018 Kaia Urban Primary NOT GIVENUNK [facility] Insurance:SELF PAY [facility] Number: [place], [place] [address]Rpn: Date:2018-04-04 () 03/28/2018 Kaia Gordon147 Primary Kaia [place] NKECHI Insurance:MEDICARE FreebornDOB: [facility] PART A [facility] [id number] [facility] CenterORT Number: [place], [place] [address]Wsj: [id number] Date:2018-03-28 () 03/28/2018 Secondary Kaia [place] Insurance:BUCKEYE FreebornDOB: [facility] [id number] Number: Repository [id number] Date:1779-33-27UI [address] [place] [address]GK: 03/28/2018 Tertiary NOT GIVENUNK [place] Insurance:SELF PAY [facility] Number: Effective Repository Date:2018-03-28 03/20/2018 Kaia Primary Kaia [facility] FreebornDOB: Insurance:MedicarePol FreebornDOB: System icy Number: Effective [id number] Repository Merkel Date: [place], [place] [address]Pnh: (HP) 03/20/2018 Secondary Kaia [facility] Insurance:MedicarePol FreebornDOB: System icy Number: Effective [id number] Repository Date: 03/20/2018 Tertiary Kaia [facility] Insurance:BuckeyePoli FreebornDOB: System cy Number: Effective [id number] Repository Date: 03/16/2018 Kaia Primary Kaia [facility] FreebornDOB: Insurance:MedicarePol FreebornDOB: System icy Number: Effective [id number] Repository [address] Date: [place], [place] [address]Xrb: (HP) 03/16/2018 Secondary Kaia [facility] Insurance:MedicarePol FreebornDOB: System icy Number: Effective [id number] Repository Date: 03/16/2018 Tertiary Kaia [facility] Insurance:BuckeyePoli FreebornDOB: System cy Number: Effective [id number] Repository Date: 03/07/2018 Kaia [id number] Primary Kaia [place] CLOSTER Insurance:MEDICARE FreebornDOB: [facility] [id number] [facility] Number: Repository [place], [place] [address]Iii: [id number] Date:2018-03-07 (HP) 03/07/2018 Secondary Kaia Beatriz Insurance:BUCKEYE FreebornDOB: [facility] [id number] PLANPolicy Number: Repository [id number] Date:3333-38-57PH [address] [place] [address]BU: 03/07/2018 Tertiary NOT GIVENUNK [place] Insurance:SELF PAY [facility] Number: Effective Repository Date:2018-03-07 03/06/2018 Kaia [id number] Primary Kaia [place] CLOSTER Insurance:MYCARE FreebornDOB: [facility] *[place] [id number] NETWORKPolicy Number: Repository [place], [place] [address]Fgd: [id number] Date:[id number] BOX (IE) [address] [place] [address]RN: 03/06/2018 Secondary NOT GIVENUNK Beatriz Insurance:SELF PAY [facility] Number: Effective Repository Date:2018-03-06 09/29/2017 Kaia Primary Kaia Beatriz [id number] Insurance:MEDICARE FreebornDOB: [facility] PART A [facility] [id number] [place] Number: Repository [id number]: [id number] [phone] (HP) Date:2017-09-29 09/29/2017 Secondary Kaia [place] Insurance:[facility] FreebornB: [facility] [id number] [facility] PLANPolicy Number: Repository [id number] Date:4061-66-90NU [address] [place] [address]MB: 09/29/2017 Tertiary NOT GIVENUNK Beatriz Insurance:SELF PAY [facility] Number: Effective Repository Date:2017-09-29 06/02/2017 Kaia Primary Kaia [place] [id number] Insurance:MYCARE FreebornDOB: [facility] *[place] [id number] [place] NETWORKPolic Number: Repository [id number]: [phone] [id number] [phone] (HP) Date:8035-41-74LP [address] [place] [address] [place] [address]SN: 06/02/2017 Secondary NOT GIVENUNK [place] Insurance:SELF PAY [facility] Number: Effective Repository Date:[id number]
== END ==
LOC: OLS.ACW300 02:00
PROVIDERS: Visit Provider Family Medicine
DX: S82.201S Unspecified fracture of shaft of right tibia, sequela (principal); I10 Essential (primary) hypertension; E78.5 Hyperlipidemia, unspecified; K21.9 Gastro-esophageal reflux disease without esophagitis; Z47.89 Encounter for other orthopedic aftercare
CPT/HCPCS: 87077; 87086; 87088; 87186

== ENCOUNTER → 2018-04-08 06:15 | Outpatient (REF) | payer MEDICARE, MEDICAID, SELFPAY ==
[2018-04-08 08:57] LABS: Phenytoin (Dilantin) Level 12.6 mL (10.0-20.0)
== END ==
LOC: OLS.ACW300 06:15
PROVIDERS: Visit Provider Family Medicine
DX: S82.201S Unspecified fracture of shaft of right tibia, sequela (principal); Z47.89 Encounter for other orthopedic aftercare; I10 Essential (primary) hypertension; E78.5 Hyperlipidemia, unspecified; K21.9 Gastro-esophageal reflux disease without esophagitis
CPT/HCPCS: 36415; 80185

== ENCOUNTER → 2018-05-13 04:00 | Outpatient (REF) | payer MEDICARE, MEDICAID, SELFPAY ==
[2018-05-13 08:14] LABS: Hematocrit 38.6 % (37-47); Hemoglobin 12.4 g/dl (12.0-15.0); Mean Corp Hgb Conc 32.1 g/gl (32-36); Mean Corpuscular Hgb 32.5 pg (27.0-32.0); Mean Platelet Vol. 9.7 fl (6.2-12.0); Platelet Count 166 K/mm3 (150-450); RBC Distribution Width SD 51.7 fl (35.1-43.9); Red Blood Count 3.82 M/mm3 (4.2-5.4); White Blood Count 4.2 K/mm3 (4.4-11.0)
[2018-05-13 08:24] LABS: ALB/GLOB Ratio 0.8 RATIO (0.9-2.4); AST(SGOT) 13 U/L (15-37); Alanine Aminotransfer ALT/SGPT 21 U/L (13-56); Albumin, Serum 2.8 g/dL (3.2-5.0); Alkaline Phosphatase 70 U/L (45-117); Anion Gap 7 (5-15); BUN 12 mg/dL (7-18); BUN/Creat Ratio 24.8 RATIO (10-20); Calcium,Total 8.2 mg/dL (8.5-10.1); Chloride 103 mmol/L (98-107); Creatinine, Serum 0.48 mg/dL (0.55-1.02); EST Glomerular Filtration Rate 135 mL/min (>60); Est Glom Filt Rate - Afr Amer 163 mL/min (>60); Globulin 3.5 g/dL (2.2-4.2); Glucose 88 mg/dL (74-106); Potassium 4.2 mmol/L (3.5-5.1); Protein, Total 6.3 g/dL (6.4-8.2); Sodium Level 139 mmol/L (136-145)
[2018-05-13 08:31] LABS: Scan Indicated on CBC? Y/N NO
== END ==
LOC: OLS.ACW300 04:00
PROVIDERS: Visit Provider Family Medicine
DX: S82.201S Unspecified fracture of shaft of right tibia, sequela (principal); Z47.89 Encounter for other orthopedic aftercare; E78.5 Hyperlipidemia, unspecified; K21.9 Gastro-esophageal reflux disease without esophagitis
CPT/HCPCS: 36415; 80053; 85027

== ENCOUNTER → 2018-06-06 | Outpatient (REF) | payer SELFPAY ==
[2018-06-06 09:06] LABS: Phenytoin (Dilantin) Level 13.7 mL (10.0-20.0)
== END | disposition home or self-care (01) ==
LOC: OLS.ACW300 05:00
PROVIDERS: Visit Provider Family Medicine
DX: S82.201S Unspecified fracture of shaft of right tibia, sequela (principal); Z47.89 Encounter for other orthopedic aftercare; I10 Essential (primary) hypertension; E78.5 Hyperlipidemia, unspecified; K21.9 Gastro-esophageal reflux disease without esophagitis
CPT/HCPCS: 36415; 80185

== ENCOUNTER → 2018-07-04 05:00 | Outpatient (REF) | payer MEDICARE, MEDICAID, SELFPAY ==
[2018-07-04 09:34] LABS: Hematocrit 37.8 % (37-47); Hemoglobin 12.3 g/dl (12.0-15.0); Mean Corp Hgb Conc 32.5 g/gl (32-36); Mean Corpuscular Hgb 32.7 pg (27.0-32.0); Mean Corpuscular Volume 100.5 fL (81-99); Mean Platelet Vol. 10.1 fl (6.2-12.0); Platelet Count 157 K/mm3 (150-450); RBC Distribution Width CV 14.9 % (11.6-14.6); RBC Distribution Width SD 54.7 fl (35.1-43.9); Red Blood Count 3.76 M/mm3 (4.2-5.4); White Blood Count 3.8 K/mm3 (4.4-11.0)
[2018-07-04 09:51] LABS: Scan Indicated on CBC? Y/N NO
[2018-07-04 10:02] LABS: ALB/GLOB Ratio 0.8 RATIO (0.9-2.4); AST(SGOT) 11 U/L (15-37); Alanine Aminotransfer ALT/SGPT 15 U/L (13-56); Albumin, Serum 2.8 g/dL (3.2-5.0); Alkaline Phosphatase 64 U/L (45-117); Anion Gap 4 (5-15); BUN 17 mg/dL (7-18); BUN/Creat Ratio 28.7 RATIO (10-20); Calcium,Total 8.1 mg/dL (8.5-10.1); Chloride 103 mmol/L (98-107); Cholesterol 152 mg/dL (200); Creatinine, Serum 0.59 mg/dL (0.55-1.02); EST Glomerular Filtration Rate 107 mL/min (>60); Est Glom Filt Rate - Afr Amer 129 mL/min (>60); Globulin 3.4 g/dL (2.2-4.2); Glucose 77 mg/dL (74-106); High Density Lipoprotein 42 mg/dL; Potassium 4.6 mmol/L (3.5-5.1); Protein, Total 6.2 g/dL (6.4-8.2); Sodium Level 139 mmol/L (136-145); Thyroid Stim Hormone (TSH) 2.52 uIU/mL (0.358-3.74); Triglycerides 63 mg/dL; Very Low Density Lipoprotein 13 mg/dL (5-40)
[2018-07-04 10:36] LABS: Vitamin D,25 Hydroxy 42.3 ng/mL (29.95-100.01)
== END ==
LOC: OLS.ACW300 05:00
PROVIDERS: Visit Provider Family Medicine
DX: K80.20 Calculus of gallbladder without cholecystitis without obstruction (principal); R27.9 Unspecified lack of coordination; M62.81 Muscle weakness (generalized); R26.81 Unsteadiness on feet; Z74.09 Other reduced mobility; Z90.49 Acquired absence of other specified parts of digestive tract
CPT/HCPCS: 36415; 80053; 80061; 82306; 84443; 85027

== ENCOUNTER → 2018-12-05 05:00 | Outpatient (REF) | payer MEDICARE, MEDICAID, SELFPAY ==
[2018-12-05 08:53] LABS: Phenytoin (Dilantin) Level 22.2 mL (10.0-20.0)
== END ==
LOC: OLS.ACW300 05:00
DX: S82.201S Unspecified fracture of shaft of right tibia, sequela (principal); Z47.89 Encounter for other orthopedic aftercare; I10 Essential (primary) hypertension; E78.5 Hyperlipidemia, unspecified; K21.9 Gastro-esophageal reflux disease without esophagitis; R56.9 Unspecified convulsions
CPT/HCPCS: 36415; 80185